=== PATIENT | female | born 1945 | race Two or more races ===

== ENCOUNTER 2017-08-08 08:18 | Inpatient (IN) | payer OTHER, MEDICARE ==
[~2017-08-08] VITALS: Ht 152.4 cm; Wt 74.9 kg
[~2017-08-08 08:18] MED LIST: ACID1TAB4 PO; Acetaminophen PO; HTN MED; HYDR-3326 PO; SULF1TAB48 PO; [UNRECOGNIZED DRUG - REMARK]
[2017-08-08] MEDS ORDERED: PIPERACILLIN SODIUM/TAZOBACTAM 3.375 G in IV DEXTROSE 5% 50 ML IV ONE (09:00)
[2017-08-08] MEDS ORDERED: VANCOMYCIN 1G/D5W 200 ML PIGGYBACK IV ONE (09:00)
[2017-08-08] MEDS ORDERED: IV NORMAL SALINE 1000 ML BAG IV ONE (09:00)
[2017-08-08] MEDS ORDERED: KETOROLAC TROMETHAMINE 30 MG INJ IVP ONE (09:00)
--- NOTE | 2017-08-08 09:24 | NUR ---
DAUGHTER IS GOING TO BRING THE COMPLETE LIST OF MEDS AT NOON TODAY. CURRENTLY. PT AND DAUGHTER CANNOT ACCURATELY RECALL THE MEDS.
--- NOTE | 2017-08-08 09:31 | NUR ---
iv placed, labs drawn/sent, presently artemio being performed. monitor shows nsr, pt's daughter at the bedside.
[2017-08-08] MEDS ORDERED: VANCOMYCIN IV 0 ML ONE (09:34)
[2017-08-08] MEDS ORDERED: KETOROLAC TROMETHAMINE 30 MG INJ ONE (09:34)
[2017-08-08 09:35] LABS: BASOPHILS # (AUTO) 0.3 K/uL (0.0-8.0); BASOPHILS % (AUTO) 1.9 % (0.0-2.0); EOSINOPHILS % (AUTO) 0.1 % (0.0-7.0); HEMATOCRIT 42.3 % (37-47); HEMOGLOBIN 13.7 G/DL (12.0-16.0); LYMPHOCYTES # (AUTO) 0.6 K/UL (0.8-4.8); LYMPHOCYTES % (AUTO) 3.8 % (20.5-51.5); MEAN CORPUSCULAR HEMOGLOBIN 25.5 UUG (27.0-31.0); MEAN CORPUSCULAR HGB CONC 32 g/dL (32.0-37.0); MEAN CORPUSCULAR VOLUME 78.5 FL (81.0-99.0); MONOCYTES # (AUTO) 0.7 K/UL (0.1-1.30); MONOCYTES % (AUTO) 4.4 % (0.0-11.0); NEUTROPHILS # (AUTO) 15.1 K/UL (1.8-8.9); NEUTROPHILS % (AUTO) 89.8 % (38.5-71.5); PLATELET COUNT (AUTO) 284 K/UL (150-450); RED BLOOD CELL COUNT(AUTO) 5.39 MIL/UL (4.2-5.4); WHITE BLOOD COUNT (AUTO) 16.7 K/UL (4.0-11.2)
[2017-08-08] MEDS ORDERED: VANCOMYCIN IV 200 ML ONE (09:35)
[2017-08-08] MEDS ORDERED: PIPERACILLIN/TAZOBACTAM/D5W 50 ML IV ONE (09:36)
[2017-08-08] MEDS ORDERED: ONDANSETRON 4 MG/2 ML VIAL ONE (09:37)
[2017-08-08 09:46] LABS: CREATININE 0.9 mg/dL (0.6-1.3); POTASSIUM 3.9 mmol/L (3.5-5.1)
[2017-08-08 10:33] LABS: *BILIRUBIN,URIN NEGATIVE (NEGATIVE); *BLOOD, URINE NEGATIVE (NEGATIVE); *CLARITY,URINE CLEAR (CLEAR); *COLOR,URINE YELLOW (YELLOW); *KETONES,URINE NEGATIVE (NEGATIVE); *PROTEIN,URINE NEGATIVE (NEGATIVE); *UROBILINOGEN,URINE 0.2 E.U./dl (NORMAL); LEUKOCYTE ESTERASE ,URINE NEGATIVE (NEGATIVE); NITRITE, URINE NEGATIVE (NEGATIVE); PH,URINE 8.5 (5.0-8.0); UGLUCOSE NEGATIVE (NEGATIVE)
[2017-08-08 10:40] LABS: BACTERIA,URINE NONE SEEN /HPF (NONE SEEN); RBC,URINE 0-3 /HPF (0-3); SQUAMOUS EPITHELIAL CELL,UR FEW /HPF (NONE SEEN); WBC,URINE 0-3 /HPF (0-3)
--- NOTE | 2017-08-08 11:05 | NUR ---
SBAR REPORT TO ESTHER MARTINEZ
--- NOTE | 2017-08-08 11:20 | NUR ---
MSE COMPLETED, ADMIT ORDER WRITTEN. PT TRANSPORTED VIA [facility] TO RM [facility]
--- NOTE | 2017-08-08 11:30 | NUR ---
Pt arrived from ER calm, cooperative, swollen right arm where she had " removal of lymph nodes" Pt should not have blood pressure taken on that arm. Pt diagnosed with cellulitis, pt came up with meds and belongings. Pt compliant with medication. Daughter at bed side Crystal. Crystal cell # .
[2017-08-08 11:45] VITALS: BP 92/45
[2017-08-08] MEDS ORDERED: MAGNESIUM HYDROXIDE 30 ML LIQUID UDC PO PRN (13:15)
[2017-08-08] MEDS ORDERED: ZOLPIDEM 5 MG TABLET PO PRN (13:15)
[2017-08-08] MEDS ORDERED: ONDANSETRON 4 MG/2 ML VIAL IV PRN (13:15)
[2017-08-08] MEDS: HYDROCODONE/APAP 5-325MG TABLET PO PRN (14:01)
[2017-08-08] MEDS ORDERED: ATEN25TA PO (14:06)
[2017-08-08] MEDS ORDERED: LOSA50TA21 PO (14:07)
[2017-08-08] MEDS ORDERED: FENO134C PO (14:07)
[2017-08-08] MEDS ORDERED: ESCI10TA55 PO (14:07)
[2017-08-08] MEDS ORDERED: FERR325T30 PO (14:07)
[2017-08-08] MEDS ORDERED: LORA10TA7 PO (14:07)
--- NOTE | 2017-08-08 15:19 | NUR ---
CLINICAL PHARMACY NOTE: VANCOMYCIN PHARMACY TO DOSE Subjective: to start vanco in this 71y/o female for indication of cellulitis Objective: hegiht 152 cm weight 74kg Bun 0.9 Scr 0.9 Wbc 16.7 temp 99.5 1gm vanco givein in ER 07/08 @ ~1000 Assessment/Plan Will start vanoc 1gm q22hrs for estimated torugh of 15.6, second dose due tomorrow at 0800. Will check trough before 4th scheduled trough (not ordered yet). Will dose per level if renal function to become unstable. To follow
[2017-08-08 15:48] VITALS: BP 90/45
[2017-08-08] MEDS: PIPERACILLIN/TAZOBACTAM/D5W 3.375 G in PREMIXED 1 EACH IV SCH ×2 (17:22→22:24)
--- NOTE | 2017-08-08 19:30 | NUR ---
RECEIVED IN BED, RESTING. FAMILY AT BEDSIDE. IN NO ACUTE SIGN OF DISTRESS. WILL CONTINUE TO MONITOR.
[2017-08-08 20:00] VITALS: BP 109/52
[2017-08-08] MEDS: ACIDOPHILUS/BULGARICUS CHEW TAB PO SCH (20:32)
[2017-08-08] MEDS: ACETAMINOPHEN 325 MG TABLET PO PRN (20:43)
[2017-08-08] MEDS ORDERED: DOCUSATE SODIUM 250 MG CAPSULE PO SCH (21:00)
[2017-08-08] MEDS: IV NS 1000 ML 1,000 ML IV PRN (22:27)
[2017-08-09] MEDS: IV NS 1000 ML 1,000 ML IV PRN (03:47)
[2017-08-09 05:06] VITALS: BP 94/45
[2017-08-09] MEDS: PIPERACILLIN/TAZOBACTAM/D5W 3.375 G in PREMIXED 1 EACH IV SCH ×2 (05:43→14:56)
[2017-08-09] MEDS: PANTOPRAZOLE SODIUM 40 MG TABLET.DR PO SCH (06:20)
--- NOTE | 2017-08-09 06:29 | NUR ---
PT IN BED ASLEEP, IN NO ACUTE SIGNS OF DISTRESS, WAS GIVEN TYLENOL LAST NIGHT FOR C/O HEADACHE, AND WITH RELIEF.IVF INFUSING. BRP X 2.SAFETY MEASURES RENDERED.
[2017-08-09 07:08] LABS: BASOPHILS % (AUTO) 0.5 % (0.0-2.0); EOSINOPHILS % (AUTO) 0.4 % (0.0-7.0); HEMATOCRIT 36.2 % (31.2-41.9); HEMOGLOBIN 11.7 g/dL (10.9-14.3); LYMPHOCYTES # (AUTO) 1.8 K/uL (20.0-40.0); LYMPHOCYTES % (AUTO) 17.2 % (20.5-51.5); MEAN CORPUSCULAR HEMOGLOBIN 25.4 uug (24.7-32.8); MEAN CORPUSCULAR HGB CONC 32 g/dL (32.3-35.6); MEAN CORPUSCULAR VOLUME 78.8 fL (75.5-95.3); MONOCYTES # (AUTO) 1.2 K/uL (2.0-10.0); NEUTROPHILS # (AUTO) 7.6 K/uL (1.8-8.9); NEUTROPHILS % (AUTO) 70.9 % (38.5-71.5); PLATELET COUNT (AUTO) 206 K/uL (179-408); RED BLOOD CELL COUNT(AUTO) 4.59 MIL/uL (3.63-4.92); WHITE BLOOD COUNT (AUTO) 10.7 K/uL (3.8-11.8)
[2017-08-09 07:27] LABS: THYROID STIMULATING HORMONE 1.092 mIU/mL (0.358-3.740)
[2017-08-09] MEDS: VANCOMYCIN IV 1 G in PREMIXED 0 EACH IV SCH (08:03)
[2017-08-09] MEDS: ACIDOPHILUS/BULGARICUS CHEW TAB PO SCH ×2 (08:04→20:25)
[2017-08-09 09:30] LABS: BILIRUBIN,TOTAL 0.5 mg/dL (0.2-1.0); MAGNESIUM 2.1 mg/dL (1.8-2.4); PHOSPHOROUS 3.1 mg/dL (2.5-4.9); TOTAL PROTEIN, SERUM 6.1 g/dL (6.4-8.2)
[2017-08-09 11:35] VITALS: BP 114/50
[2017-08-09] MEDS ORDERED: MAGNESIUM CITRATE 296 ML BOTTLE PO ONE (13:15)
[2017-08-09] MEDS ORDERED: GLYCERIN ADULT RECTAL SUPP EACH RC ONE (13:15)
[2017-08-09] MEDS: ACETAMINOPHEN 325 MG TABLET PO PRN (14:54)
--- NOTE | 2017-08-09 15:38 | NUR ---
CLINICAL PHARMACY NOTE: VANCOMYCIN PHARMACY TO DOSE Subjective: to continue vanco in this 71y/o female for indication of cellulitis Objective: hegiht 152 cm weight 74kg Bun 20 Scr 1.0 Wbc 10.7 temp 99.5 Assessment/Plan Will continue vanoc 1gm q22hrs for estimated torugh of 15.6, third dose due tomorrow at 0600. Will check trough before 4th scheduled trough (not ordered yet). Will dose per level if renal function to become unstable. To follow
[2017-08-09 15:43] VITALS: BP 118/57
--- NOTE | 2017-08-09 17:00 | NUR ---
Pt right arm is warm and swollen pitting edema. temperature of 99.9.Tylenol was given and encouraged pt to elevate her arm. Pt reassessed temperature is now 98.7. Pt is constipated and was given Mag-citrate and glycerin suppository. Awaiting BM.
--- NOTE | 2017-08-09 18:43 | NUR ---
Pt had 3 BM. No longer constipated.
--- NOTE | 2017-08-09 20:01 | NUR ---
RESTING IN BED. AAOX4 RIGHT ARM SWOLLEN. NO ACUTE DISTRESS NOTED. PATIENT HERE ON ANTIBIOTIC THERAPY. DENIES ANY PAIN AT THIS TIME. WILL MONITOR PATIENT. MAKING NEEDS KNOWN.
[2017-08-09] MEDS: DOCUSATE SODIUM 100 MG CAPSULE PO SCH (20:25)
[2017-08-09] MEDS ORDERED: CEFTRIAXONE 1 G in IV DEXTROSE 5% 50 ML IV SCH (21:15)
[2017-08-09 21:24] VITALS: BP 129/45
[2017-08-09] MEDS ORDERED: CEFTRIAXONE 1 G VIAL ONE (22:41)
[2017-08-10] MEDS: VANCOMYCIN IV 1 G in PREMIXED 0 EACH IV SCH (05:13)
[2017-08-10 05:21] VITALS: BP 152/60
[2017-08-10] MEDS: IV NS 1000 ML 1,000 ML IV PRN ×2 (05:21→20:51)
--- NOTE | 2017-08-10 05:57 | NUR ---
AAOX4 RAMOS'S AMBULATES TO THE BR WITHOUT ANY DIFFICULTY. VOIDING FREELY. DENIES ANY PAIN NOR ANY DISCOMFORT. SLEPT @ SHORT INTERVALS BECAUSE OF PATIENT NEAR HER ROOM SHE SAYS WAS TOO NOISY. IVF INFUSING WELL.
[2017-08-10] MEDS: PANTOPRAZOLE SODIUM 40 MG TABLET.DR PO SCH (06:15)
[2017-08-10 07:03] LABS: BASOPHILS % (AUTO) 0.8 % (0.0-2.0); CREATININE 0.8 mg/dL (0.6-1.3); EOSINOPHILS # (AUTO) 0.1 K/uL (0.0-0.7); EOSINOPHILS % (AUTO) 2.5 % (0.0-7.0); HEMATOCRIT 37.9 % (37-47); HEMOGLOBIN 11.9 G/DL (12.0-16.0); LYMPHOCYTES # (AUTO) 1.5 K/UL (0.8-4.8); LYMPHOCYTES % (AUTO) 26.3 % (20.5-51.5); MAGNESIUM 2.3 mg/dL (1.8-2.4); MEAN CORPUSCULAR HEMOGLOBIN 25.1 UUG (27.0-31.0); MEAN CORPUSCULAR HGB CONC 31 g/dL (32.0-37.0); MEAN CORPUSCULAR VOLUME 79.9 FL (81.0-99.0); MONOCYTES # (AUTO) 0.9 K/UL (0.1-1.30); MONOCYTES % (AUTO) 15.3 % (0.0-11.0); NEUTROPHILS # (AUTO) 3.4 K/UL (1.8-8.9); NEUTROPHILS % (AUTO) 55.1 % (38.5-71.5); PHOSPHOROUS 2.7 mg/dL (2.5-4.9); PLATELET COUNT (AUTO) 199 K/UL (150-450); POTASSIUM 3.9 mmol/L (3.5-5.1); RED BLOOD CELL COUNT(AUTO) 4.74 MIL/UL (4.2-5.4); WHITE BLOOD COUNT (AUTO) 5.9 K/UL (4.0-11.2)
[2017-08-10] MEDS: HYDROCODONE/APAP 5-325MG TABLET PO PRN ×2 (08:33→20:21)
[2017-08-10 09:44] LABS: EOSINOPHILS % (MANUAL) 2 % (0-8); LYMPHOCYTES % (MANUAL) 21 % (20-40); MONOCYTES % (MANUAL) 9 % (2-10); NEUTROPHILS % (MANUAL) 68 % (42-75)
[2017-08-10] MEDS: ACIDOPHILUS/BULGARICUS CHEW TAB PO SCH ×2 (10:02→20:22)
[2017-08-10] MEDS: ESCITALOPRAM OXALATE 10 MG TABLET PO SCH (11:30)
[2017-08-10] MEDS ORDERED: Medication Not On Formulary EA (Fenofibrate,Micronized (Fenofibrate) 134 MG) PO SCH (11:30)
[2017-08-10] MEDS: LORATADINE 10 MG TABLET PO SCH (11:30)
[2017-08-10] MEDS ORDERED: LOSARTAN POTASSIUM 50 MG TABLET PO SCH ×2 (11:30→20:00)
[2017-08-10] MEDS: FERROUS SULFATE 325 MG TABEC PO SCH (11:30)
[2017-08-10] MEDS ORDERED: ATENOLOL 25 MG TABLET PO SCH ×2 (11:30→22:00)
[2017-08-10 11:36] VITALS: BP 117/62
[2017-08-10] MEDS: FENOFIBRATE NANOCRYSTALLIZED 145 MG TABLET PO SCH (12:30)
--- NOTE | 2017-08-10 13:52 | NUR ---
CLINICAL PHARMACY NOTE: VANCOMYCIN PHARMACY TO DOSE Subjective: to continue vanco in this 71y/o female for indication of cellulitis Objective: height 152 cm weight 74kg Bun 15 Scr 0.8 Wbc 5.9 temp 97.8 Assessment/Plan Will continue vanco 1gm q22hrs for today. Will check trough before 4th scheduled trough (ordered for tomorrow at 0330am- RN has been informed to hold 4am dose if trough is above 20 mcg/ml). Pharmacy will check vanco level in am & adjust the dose if needed. will continue to follow
[2017-08-10 15:40] VITALS: BP 121/68
[2017-08-10] MEDS: DOCUSATE SODIUM 100 MG CAPSULE PO SCH (20:22)
[2017-08-10 20:28] VITALS: BP 143/63
[2017-08-10] MEDS ORDERED: CEFTRIAXONE 1 G in IV DEXTROSE 5% 50 ML IV SCH (23:00)
[2017-08-11 00:23] VITALS: BP 137/71
[2017-08-11 04:14] LABS: CREATININE 0.8 mg/dL (0.6-1.3)
[2017-08-11 04:18] LABS: BASOPHILS % (AUTO) 0.7 % (0.0-2.0); EOSINOPHILS # (AUTO) 0.2 K/uL (0.0-0.7); EOSINOPHILS % (AUTO) 3.6 % (0.0-7.0); HEMATOCRIT 37.4 % (37-47); LYMPHOCYTES # (AUTO) 2.2 K/UL (0.8-4.8); LYMPHOCYTES % (AUTO) 35.1 % (20.5-51.5); MEAN CORPUSCULAR HEMOGLOBIN 25.3 UUG (27.0-31.0); MEAN CORPUSCULAR HGB CONC 32 g/dL (32.0-37.0); MONOCYTES # (AUTO) 0.7 K/UL (0.1-1.30); MONOCYTES % (AUTO) 10.8 % (0.0-11.0); NEUTROPHILS # (AUTO) 3.2 K/UL (1.8-8.9); NEUTROPHILS % (AUTO) 49.8 % (38.5-71.5); PLATELET COUNT (AUTO) 205 K/UL (150-450); RED BLOOD CELL COUNT(AUTO) 4.73 MIL/UL (4.2-5.4); WHITE BLOOD COUNT (AUTO) 6.3 K/UL (4.0-11.2)
[2017-08-11] MEDS: VANCOMYCIN IV 1 G in PREMIXED 0 EACH IV SCH (04:27)
[2017-08-11 04:46] VITALS: BP 114/56
[2017-08-11] MEDS: PANTOPRAZOLE SODIUM 40 MG TABLET.DR PO SCH (06:34)
--- NOTE | 2017-08-11 07:30 | NUR ---
RESTING IN BED NO SOB OR SIGNS OF DISTRESS, RIGHT ARM STILL SWOLLEN 3+, DENIES PAIN OR TINGLING OR NUMBNESS CONTINUE WITH IV ANTIBIOTICS
[2017-08-11] MEDS: LORATADINE 10 MG TABLET PO SCH (08:27)
[2017-08-11] MEDS: ESCITALOPRAM OXALATE 10 MG TABLET PO SCH (08:27)
[2017-08-11] MEDS: FENOFIBRATE NANOCRYSTALLIZED 145 MG TABLET PO SCH (08:27)
[2017-08-11] MEDS: FERROUS SULFATE 325 MG TABEC PO SCH (08:27)
[2017-08-11] MEDS: ACIDOPHILUS/BULGARICUS CHEW TAB PO SCH (08:27)
[2017-08-11 11:03] VITALS: BP 133/64
[2017-08-11] MEDS ORDERED: SULF1TAB48 PO (11:42)
[2017-08-11] MEDS ORDERED: ACID1TAB4 PO (11:42)
--- NOTE | 2017-08-11 12:00 | NUR ---
SEEN BY HOSPITALIST WITH DC ORDER FREIGHT ENGINEER MADE AWARE
[2017-08-11 15:10] VITALS: BP 133/61
--- NOTE | 2017-08-11 15:46 | NUR ---
DC AND FOLLOW-UP INSTRUCTION GIVEN
[2017-08-11] MEDS ORDERED: VANCOMYCIN IV 1 G in PREMIXED 0 EACH IV SCH (16:00)
--- NOTE | 2017-08-11 16:04 | NUR ---
DCD HOME STABLE WITH RX AND FOLLOW-UP INSTRUCTION GIVEN TO DAUGHTER VIS PRIVATE CAR
== END 2017-08-11 16:00 | disposition home or self-care (01) | DRG 720 ==
LOC: ER 08:18 → MED 10:48
PROVIDERS: ADMIT Internal Medicine; ATTEND Internal Medicine
DX: A41.9 Sepsis, unspecified organism (principal); N17.0 Acute kidney failure with tubular necrosis; L03.113 Cellulitis of right upper limb; I10 Essential (primary) hypertension; Z90.11 Acquired absence of right breast and nipple; I97.2 Postmastectomy lymphedema syndrome; E66.9 Obesity, unspecified; Z68.32 Body mass index [BMI] 32.0-32.9, adult; E78.5 Hyperlipidemia, unspecified; E87.6 Hypokalemia; Z85.3 Personal history of malignant neoplasm of breast; R73.9 Hyperglycemia, unspecified; R19.7 Diarrhea, unspecified; Z79.899 Other long term (current) drug therapy
CPT/HCPCS: 36415; 83550; 83605; 83735; 84100; 84443; 85025; 85730; 87040; 87086; A4663; J0696; J1885; J2405; J2543; J3370; J7030; J7060

== ENCOUNTER 2017-09-18 23:36 | Inpatient (IN) | payer OTHER, MEDICARE ==
[~2017-09-18] VITALS: Ht 167.6 cm; Wt 83.9 kg
[~2017-09-18 23:36] MED LIST changes: +ATEN25TA PO; -Acetaminophen PO; +ESCI10TA55 PO; +FENO134C PO; +FERR325T30 PO; -HTN MED; -HYDR-3326 PO; +LORA10TA7 PO; +LOSA50TA21 PO; -[UNRECOGNIZED DRUG - REMARK]
[2017-09-19] MEDS ORDERED: IV NORMAL SALINE 1000 ML BAG IV ONE (01:15)
--- NOTE | 2017-09-19 01:38 | NUR ---
Patient is AAOx4. No acute distress at this time. Daughter at bedside. All patient needs attended and met.
[2017-09-19 01:49] LABS: BASOPHILS % (AUTO) 0.2 % (0.0-2.0); EOSINOPHILS # (AUTO) 0.1 K/uL (0.0-0.7); EOSINOPHILS % (AUTO) 0.3 % (0.0-7.0); LYMPHOCYTES # (AUTO) 0.8 K/uL (20.0-40.0); LYMPHOCYTES % (AUTO) 4.7 % (20.5-51.5); MEAN CORPUSCULAR HEMOGLOBIN 25.5 uug (24.7-32.8); MEAN CORPUSCULAR HGB CONC 33 g/dL (32.3-35.6); MEAN CORPUSCULAR VOLUME 78.3 fL (75.5-95.3); MONOCYTES # (AUTO) 0.8 K/uL (2.0-10.0); MONOCYTES % (AUTO) 4.5 % (0.0-11.0); NEUTROPHILS # (AUTO) 15.6 K/uL (1.8-8.9); NEUTROPHILS % (AUTO) 90.3 % (38.5-71.5); PLATELET COUNT (AUTO) 243 K/uL (179-408); RED BLOOD CELL COUNT(AUTO) 5.11 MIL/uL (3.63-4.92); WHITE BLOOD COUNT (AUTO) 17.3 K/uL (3.8-11.8)
--- NOTE | 2017-09-19 01:56 | NUR ---
CALLED PATIENT'S DAUGHTER RAADTELMA IWRIN TO GET LIST OF MEDICATION. UNABLE TO OBTAIN LIST AT THIS TIME. PATIENT'S DAUGHTER WILL BRING IN AM
[2017-09-19 02:08] LABS: CREATININE 0.9 mg/dL (0.6-1.3); POTASSIUM 4.1 mmol/L (3.5-5.1)
--- NOTE | 2017-09-19 02:14 | NUR ---
APOLONIA BOB spoke with Dr Abdi, patient cleared for admission
[2017-09-19 02:15] LABS: BILIRUBIN,DIRECT 0.1 mg/dL (0.0-0.2); BILIRUBIN,TOTAL 0.5 mg/dL (0.2-1.0); TOTAL PROTEIN, SERUM 7.4 g/dL (6.4-8.2)
[2017-09-19] MEDS ORDERED: HYDROCODONE/APAP 5-325MG TABLET PO PRN (02:15)
[2017-09-19] MEDS ORDERED: ONDANSETRON 4 MG/2 ML VIAL IV PRN (02:15)
[2017-09-19] MEDS ORDERED: MAGNESIUM HYDROXIDE 30 ML LIQUID UDC PO PRN (02:15)
[2017-09-19] MEDS ORDERED: ACETAMINOPHEN 325 MG TABLET PO PRN (02:15)
[2017-09-19] MEDS ORDERED: HYDROCODONE/APAP 10-325 MG TABLET PO PRN (02:15)
[2017-09-19] MEDS ORDERED: VANCOMYCIN IV 1,000 MG in IV DEXTROSE 5% 250 ML IV ONE (02:15)
[2017-09-19] MEDS ORDERED: Z GUARD REMEDY PASTE 57 GM TUBE TOP PRN (02:15)
[2017-09-19] MEDS ORDERED: VANCOMYCIN IV 200 ML ONE (02:37)
--- NOTE | 2017-09-19 03:03 | NUR ---
patient in bed, no acute distress noted
--- NOTE | 2017-09-19 03:07 | NUR ---
Report given to Ashley Plasencia on inpatient unit. Patient admitted to Med Surg under Dr Abdi. Belongings list completed. 2 Rn skin check complete with no issues noted. VSS
--- NOTE | 2017-09-19 04:20 | NUR ---
Patient arrived in the unit via wheelchair from ER at 0340. AAO x4. Farsi speaking but able to make needs known and converse in Latvian. Left hand IV 20 gauge, patent and intact. Vancomycin infusing. No acute distress noted. On room air. Right arm swollen, and c/o slight pain but stated that she has already received pain medication in the ER. Pertinent assessment done. Oriented the patient to the unit and equipment. Safety measures maintained. Call light and personal belongings within reach. Will continue to monitor.
[2017-09-19 05:08] VITALS: BP 101/57
[2017-09-19 08:00] VITALS: BP 98/49
--- NOTE | 2017-09-19 08:00 | NUR ---
Patient is asleep at this time, with left hand IV 20 gauge, patent and intact. No acute distress noted. On room air. Right arm swollen, encourage to elevate the right arm at this time, she denies pain. Pertinent assessment done. Safety measures maintained. Call light and personal belongings within reach. Will continue to monitor.
[2017-09-19] MEDS: ENOXAPARIN SODIUM 40 MG/0.4 ML DISP.SYRIN SQ SCH (09:23)
[2017-09-19] MEDS ORDERED: DEXL60CA3 PO (11:40)
[2017-09-19] MEDS ORDERED: LORA10TA7 PO (11:40)
[2017-09-19] MEDS ORDERED: FENO134C PO (11:40)
[2017-09-19] MEDS ORDERED: ATEN25TA PO (11:40)
[2017-09-19] MEDS ORDERED: CALC500T29 PO (11:40)
[2017-09-19] MEDS ORDERED: ESCI20TA PO (11:40)
--- NOTE | 2017-09-19 13:06 | NUR ---
CLINICAL PHARMACY NOTE:VANCOMYCIN DOSING S Start vancomycin dosing 0n 71 y/o female 5'6" 185 lb for cellulitis. patient received vanco 1000mg IVPB x1 in ED on 09/19 at 230. labs Temp 98.5 BUN 24 Scr 0.9 wbc 17.3 Plan Will start vanco 1250mg IVPB q20 h for estimated trough 15.6 mcg/ml at steady state. 1st dose is due today at 2000. Will order trough level prior to 4th dose (not yet ordered). Will monitor renal function & adjust the dose if needed. Will continue to monitor
--- NOTE | 2017-09-19 18:34 | NUR ---
Earlier today, daughter of patient Susie Barnett, brought home medications and were sent to the pharmacy, for reconciliation. Patient is awake at this time, with left hand IV 20 gauge, patent and intact. No acute distress noted. On room air. Right arm swollen, encourage to elevate the right arm. Patient is on antibiotic therapy no signs and symptoms of adverse reactions at this time, needs attended promptly, kept comfortable, clean and dry. Pain management provided as needed. Pertinent assessment done. Safety measures maintained. Call light and personal belongings within reach.
[2017-09-19 19:30] VITALS: BP 121/55
--- NOTE | 2017-09-19 19:45 | NUR ---
Received pt in bed, AAO x 3 with granddaughter at bedside. Verbally responsive and able to make needs known. Denies pain or discomfort at this time. No acute distress noted. All safety measures and fall precautions maintained. Call light and personal belongings within reach. 20g saline lock IV noted on left hand. Denies pain at site. Will continue to monitor.
[2017-09-19] MEDS: VANCOMYCIN IV 1,250 MG in IV DEXTROSE 5% 500 ML IV SCH (20:25)
--- NOTE | 2017-09-19 21:15 | NUR ---
Patient complaining of pain at IV site. Noted infiltration. IV meds stopped. L hand IV removed and ice pack applied. IV re-inserted on L FA 22g, patent and intact with good blood return. Continuing IV medications per order. Safety maintained. Will continue to monitor.
--- NOTE | 2017-09-20 07:44 | NUR ---
Patient asleep at this time, respirations even and regular not in acute distress. Patient was noted with a new IV line in her left forearm, gauge 22 that was inserted by the previous shift, upon assessment IV site has no signs and symptoms of infiltration nor phlebitis at this time, and will continue to monitor. Safety assessments done, floor was non-slippery and dry, bed was locked, all her belongings and call light remains within reach. Patient is on ATB therapy with no signs and symptoms of adverse side effects, will continue to monitor.
[2017-09-20 07:56] VITALS: BP 102/44
[2017-09-20 08:49] LABS: EOSINOPHILS # (AUTO) 0.1 K/uL (0.0-0.7)
[2017-09-20 08:58] LABS: CREATININE 0.8 mg/dL (0.6-1.3); PHOSPHOROUS 3.3 mg/dL (2.5-4.9); POTASSIUM 4.2 mmol/L (3.5-5.1)
[2017-09-20 09:12] LABS: BASOPHILS % (AUTO) 0.6 % (0.0-2.0); EOSINOPHILS % (AUTO) 1.2 % (0.0-7.0); HEMATOCRIT 39.7 % (31.2-41.9); LYMPHOCYTES # (AUTO) 2.2 K/uL (20.0-40.0); LYMPHOCYTES % (AUTO) 26.2 % (20.5-51.5); MEAN CORPUSCULAR HEMOGLOBIN 25.8 uug (24.7-32.8); MEAN CORPUSCULAR HGB CONC 33 g/dL (32.3-35.6); MEAN CORPUSCULAR VOLUME 78.7 fL (75.5-95.3); MONOCYTES % (AUTO) 12.5 % (0.0-11.0); NEUTROPHILS # (AUTO) 4.9 K/uL (1.8-8.9); NEUTROPHILS % (AUTO) 59.5 % (38.5-71.5); PLATELET COUNT (AUTO) 233 K/uL (179-408); RED BLOOD CELL COUNT(AUTO) 5.05 MIL/uL (3.63-4.92)
[2017-09-20 09:13] LABS: WHITE BLOOD COUNT (AUTO) 8.2 K/uL (3.8-11.8)
[2017-09-20] MEDS: ENOXAPARIN SODIUM 40 MG/0.4 ML DISP.SYRIN SQ SCH (10:04)
--- NOTE | 2017-09-20 15:21 | NUR ---
CLINICAL PHARMACY NOTE:VANCOMYCIN DOSING S continue vancomycin dosing 0n 71 y/o female 5'6" 185 lb for cellulitis. labs Temp 98.2 BUN 16 Scr 0.8 wbc 8.2 Plan Will continue same dose of vanco 1250mg IVPB q20 h for today. 2nd dose is due today at 1600. Will order trough level prior to 4th dose (not yet ordered). Will monitor renal function & adjust the dose if needed. Will continue to monitor
[2017-09-20] MEDS: VANCOMYCIN IV 1,250 MG in IV DEXTROSE 5% 500 ML IV SCH (16:04)
--- NOTE | 2017-09-20 18:50 | NUR ---
Patient had a room change from 124A to 123A. Patient was made well aware about the transfer and she was compliant. She was oriented well with the room and all belongings were brought together with the patient, needs attended promptly, call light in reach.
--- NOTE | 2017-09-20 19:25 | NUR ---
Received pt in bed, AAO x 4, on her cellphone. Verbally responsive and able to make needs known. Denies pain or discomfort at this time. No acute distress noted. All safety measures and fall precautions maintained. Call light and all personal belongings within reach. Will continue to monitor.
[2017-09-20 20:00] VITALS: BP 144/73
[2017-09-21 04:00] VITALS: BP 120/50
[2017-09-21 07:59] VITALS: BP 135/68
[2017-09-21] MEDS: ENOXAPARIN SODIUM 40 MG/0.4 ML DISP.SYRIN SQ SCH (09:47)
[2017-09-21] MEDS: LORATADINE 10 MG TABLET PO SCH (11:30)
[2017-09-21] MEDS ORDERED: ATENOLOL 25 MG TABLET PO SCH (11:30)
[2017-09-21] MEDS ORDERED: Medication Not On Formulary EA (Fenofibrate,Micronized (Fenofibrate) 134 MG) PO SCH (11:30)
[2017-09-21] MEDS: FENOFIBRATE NANOCRYSTALLIZED 145 MG TABLET PO SCH (12:49)
[2017-09-21 12:52] LABS: BASOPHILS # (AUTO) 0.1 K/uL (0.0-8.0); BASOPHILS % (AUTO) 0.9 % (0.0-2.0); EOSINOPHILS # (AUTO) 0.1 K/uL (0.0-0.7); EOSINOPHILS % (AUTO) 1.9 % (0.0-7.0); HEMATOCRIT 39.4 % (31.2-41.9); HEMOGLOBIN 13.2 g/dL (10.9-14.3); LYMPHOCYTES # (AUTO) 1.8 K/uL (20.0-40.0); LYMPHOCYTES % (AUTO) 23.5 % (20.5-51.5); MEAN CORPUSCULAR HEMOGLOBIN 26.1 uug (24.7-32.8); MEAN CORPUSCULAR HGB CONC 34 g/dL (32.3-35.6); MEAN CORPUSCULAR VOLUME 78.1 fL (75.5-95.3); MONOCYTES # (AUTO) 0.8 K/uL (2.0-10.0); MONOCYTES % (AUTO) 10.8 % (0.0-11.0); NEUTROPHILS # (AUTO) 4.7 K/uL (1.8-8.9); NEUTROPHILS % (AUTO) 62.9 % (38.5-71.5); PLATELET COUNT (AUTO) 240 K/uL (179-408); RED BLOOD CELL COUNT(AUTO) 5.04 MIL/uL (3.63-4.92); WHITE BLOOD COUNT (AUTO) 7.5 K/uL (3.8-11.8)
[2017-09-21 13:23] LABS: BILIRUBIN,TOTAL 0.4 mg/dL (0.2-1.0); CREATININE 0.8 mg/dL (0.6-1.3); MAGNESIUM 2.2 mg/dL (1.8-2.4); PHOSPHOROUS 3.5 mg/dL (2.5-4.9); TOTAL PROTEIN, SERUM 7.7 g/dL (6.4-8.2)
[2017-09-21] MEDS: PIPERACILLIN/TAZOBACTAM/D5W 50 ML IV SCH ×3 (13:55→23:14)
--- NOTE | 2017-09-21 14:06 | NUR ---
CLINICAL PHARMACY NOTE:VANCOMYCIN DOSING S continue vancomycin dosing 0n 71 y/o female 5'6" 185 lb for cellulitis. labs Temp 97.8 BUN 19 Scr 0.8 wbc 7.5 Plan continue same dose of vanco 1250mg IVPB q20 h for today but will adjust the schedule(3rd dose scheduled today at 1200, but not given-rescheduled to give at 1500).Will order trough level prior to 4th dose (not yet ordered). Will monitor renal function & adjust the dose if needed. Will continue to monitor
[2017-09-21] MEDS: VANCOMYCIN IV 1,250 MG in IV DEXTROSE 5% 500 ML IV SCH (15:53)
--- NOTE | 2017-09-21 18:00 | NUR ---
Patient was stable all throughout the shift, with safety measures provided at all times, patient is alert and oriented x4, ambulatory. Right hand swollen due to cellulitis, in which she is receiving IV antibiotic therapy with no adverse reactions at this time, IV site g20 on the left hand is not infiltrated at this time, encouraged patient to elevate her right hand. Patient was seen by Claudine Cleveland LASER BEAM CUTTER, with new orders noted and carried out. Needs attended promptly, due medications given, call light and belongings placed in reach.
[2017-09-21] MEDS: CALCIUM CARBONATE 500 MG TABLET PO SCH (18:17)
--- NOTE | 2017-09-21 19:45 | NUR ---
Received pt in bed, AAO x 4 watching television. Verbally responsive and able to make needs known. No acute distress noted. Denies pain or discomfort at this time. All safety measures and fall precautions maintained. Call light and all personal belongings within reach. Will continue to monitor.
[2017-09-21 20:00] VITALS: BP 126/70
[2017-09-21] MEDS ORDERED: ESCITALOPRAM OXALATE 10 MG TABLET PO SCH (21:00)
[2017-09-21] MEDS ORDERED: Medication Not On Formulary EA (Escitalopram Oxalate (Lexapro) 20 MG) PO SCH (21:00)
[2017-09-22 04:00] VITALS: BP 135/83
[2017-09-22] MEDS: PIPERACILLIN/TAZOBACTAM/D5W 50 ML IV SCH ×2 (06:04→12:18)
[2017-09-22] MEDS ORDERED: PANTOPRAZOLE SODIUM 40 MG TABLET.DR PO SCH (07:00)
[2017-09-22 08:48] VITALS: BP 130/65
[2017-09-22] MEDS: LORATADINE 10 MG TABLET PO SCH (09:00)
[2017-09-22] MEDS: CALCIUM CARBONATE 500 MG TABLET PO SCH ×2 (10:09→17:00)
[2017-09-22] MEDS: FENOFIBRATE NANOCRYSTALLIZED 145 MG TABLET PO SCH (10:09)
[2017-09-22] MEDS: ENOXAPARIN SODIUM 40 MG/0.4 ML DISP.SYRIN SQ SCH (10:12)
[2017-09-22 11:20] LABS: BASOPHILS # (AUTO) 0.1 K/uL (0.0-8.0); BASOPHILS % (AUTO) 0.8 % (0.0-2.0); EOSINOPHILS # (AUTO) 0.1 K/uL (0.0-0.7); EOSINOPHILS % (AUTO) 2.3 % (0.0-7.0); HEMATOCRIT 41.5 % (31.2-41.9); HEMOGLOBIN 13.7 g/dL (10.9-14.3); LYMPHOCYTES # (AUTO) 1.9 K/uL (20.0-40.0); LYMPHOCYTES % (AUTO) 29.1 % (20.5-51.5); MEAN CORPUSCULAR HGB CONC 33 g/dL (32.3-35.6); MEAN CORPUSCULAR VOLUME 78.7 fL (75.5-95.3); MONOCYTES # (AUTO) 0.6 K/uL (2.0-10.0); MONOCYTES % (AUTO) 8.9 % (0.0-11.0); NEUTROPHILS # (AUTO) 3.8 K/uL (1.8-8.9); NEUTROPHILS % (AUTO) 58.9 % (38.5-71.5); PLATELET COUNT (AUTO) 276 K/uL (179-408); RED BLOOD CELL COUNT(AUTO) 5.27 MIL/uL (3.63-4.92); WHITE BLOOD COUNT (AUTO) 6.5 K/uL (3.8-11.8)
[2017-09-22 12:13] LABS: BILIRUBIN,TOTAL 0.7 mg/dL (0.2-1.0); CREATININE 0.9 mg/dL (0.6-1.3); MAGNESIUM 2.1 mg/dL (1.8-2.4); PHOSPHOROUS 4.1 mg/dL (2.5-4.9); POTASSIUM 4.4 mmol/L (3.5-5.1); TOTAL PROTEIN, SERUM 7.8 g/dL (6.4-8.2)
--- NOTE | 2017-09-22 13:55 | NUR ---
CLINICAL PHARMACY NOTE:VANCOMYCIN DOSING S continue vancomycin dosing 0n 71 y/o female 5'6" 185 lb for cellulitis. labs Temp 97.7 BUN 17 Scr 0.9 wbc 6.5 Plan Will continue with same regimen vanco 1250mg IVPB q20 h. Pt recieved second dose today@ 1100. Will order trough level prior to 4th dose (not yet ordered). Will monitor renal function & adjust the dose if needed. Will continue to monitor
[2017-09-22] MEDS: VANCOMYCIN IV 1,250 MG in IV DEXTROSE 5% 500 ML IV SCH (14:13)
[2017-09-22] MEDS ORDERED: CEPH500C2 PO (14:25)
[2017-09-22] MEDS ORDERED: LACT1CAP57 PO (14:25)
[2017-09-22] MEDS ORDERED: HYDR-3326 PO (14:25)
[2017-09-22] MEDS ORDERED: LACTOBACILLUS RHAMNOSUS GG 1 EACH CAPSULE PO SCH (14:30)
[2017-09-22 15:09] LABS: *BILIRUBIN,URIN NEGATIVE (NEGATIVE); *BLOOD, URINE NEGATIVE (NEGATIVE); *CLARITY,URINE CLEAR (CLEAR); *COLOR,URINE YELLOW (YELLOW); *KETONES,URINE NEGATIVE (NEGATIVE); *PROTEIN,URINE NEGATIVE (NEGATIVE); *UROBILINOGEN,URINE 0.2 E.U./dl (NORMAL); LEUKOCYTE ESTERASE ,URINE NEGATIVE (NEGATIVE); NITRITE, URINE NEGATIVE (NEGATIVE); PH,URINE 5.5 (5.0-8.0); UGLUCOSE NEGATIVE (NEGATIVE)
[2017-09-22 15:24] LABS: RBC,URINE 0-3 /HPF (0-3)
[2017-09-22 15:25] LABS: BACTERIA,URINE NONE SEEN /HPF (NONE SEEN); SQUAMOUS EPITHELIAL CELL,UR FEW /HPF (NONE SEEN)
--- NOTE | 2017-09-22 17:53 | NUR ---
Patient was discharged on a stable condition accompanied by daughter Susie Murdock with all belongings and medications bought from home given to the patient, was checked thoroughly and accurately. Patient and daughter were given all discharge instructions and prescriptions, they both verbalized full understanding. They left with a private car.
[2017-09-22] MEDS ORDERED: ATORVASTATIN 20 MG TABLET PO SCH (21:00)
[2017-09-22] MEDS ORDERED: ATENOLOL 25 MG TABLET PO SCH (21:00)
[2017-09-22] MEDS ORDERED: CEPHALEXIN MONOHYDRATE 500 MG CAPSULE PO SCH (22:00)
== END 2017-09-22 18:00 | disposition home or self-care (01) | DRG 383 ==
LOC: ER 23:38 → MEDSURG1 09-19 02:10
PROVIDERS: ADMIT Internal Medicine
DX: L03.113 Cellulitis of right upper limb (principal); I10 Essential (primary) hypertension; E78.5 Hyperlipidemia, unspecified; I97.2 Postmastectomy lymphedema syndrome; Z90.11 Acquired absence of right breast and nipple; E66.9 Obesity, unspecified; Z68.29 Body mass index [BMI] 29.0-29.9, adult; Z79.899 Other long term (current) drug therapy; Z85.3 Personal history of malignant neoplasm of breast; Z98.49 Cataract extraction status, unspecified eye; H40.9 Unspecified glaucoma; R74.0 Nonspecific elevation of levels of transaminase and lactic acid dehydrogenase [LDH]; F41.9 Anxiety disorder, unspecified; F32.9 Major depressive disorder, single episode, unspecified
CPT/HCPCS: 36415; 70030-TC; 71045; 83605; 83690; 83735; 84100; 84443; 85025; 85730; 87040; 87086; 93005; A4663; J1650; J2543; J3370; J7060

== ENCOUNTER 2019-11-29 23:59 | Emergency (ER) | payer MEDICARE, OTHER ==
[~2019-11-29] VITALS: Ht 152.4 cm; Wt 74.4 kg
[2019-11-30] MEDS ORDERED: KETOROLAC TROMETHAMINE 15 MG INJ IVP ONE (00:30)
[2019-11-30] MEDS ORDERED: VANCOMYCIN IV 1,000 MG in IV DEXTROSE 5% 250 ML IV ONE (00:30)
[2019-11-30] MEDS ORDERED: HYDROMORPHONE 1 MG/1 ML DISP.SYRIN IV ONE (00:30)
[2019-11-30] MEDS ORDERED: CEFTRIAXONE 1 G in IV DEXTROSE 5% 50 ML IV ONE (00:30)
[2019-11-30] MEDS ORDERED: KETOROLAC TROMETHAMINE 15 MG INJ ONE (00:35)
[2019-11-30] MEDS ORDERED: CEFTRIAXONE /D5W 50ML IVPB **ER PYXIS IV ONE (00:36)
[2019-11-30] MEDS ORDERED: VANCOMYCIN IV 200 ML ONE (00:36)
[2019-11-30] MEDS ORDERED: HYDROMORPHONE 1 MG/1 ML DISP.SYRIN ONE (00:43)
[2019-11-30 00:53] LABS: CREATININE 0.9 mg/dL (0.6-1.3); POTASSIUM 3.7 mmol/L (3.5-5.1)
[2019-11-30 00:59] LABS: BILIRUBIN,DIRECT 0.1 mg/dL (0.0-0.2); BILIRUBIN,TOTAL 0.6 mg/dL (0.2-1.0); TOTAL PROTEIN, SERUM 7.4 g/dL (6.4-8.2)
[2019-11-30 01:00] LABS: BASOPHILS # (AUTO) 0.1 K/uL (0.0-8.0); BASOPHILS % (AUTO) 0.6 % (0.0-2.0); EOSINOPHILS # (AUTO) 0.1 K/uL (0.0-0.7); EOSINOPHILS % (AUTO) 0.5 % (0.0-7.0); HEMATOCRIT 39.6 % (31.2-41.9); HEMOGLOBIN 12.7 g/dL (10.9-14.3); LYMPHOCYTES # (AUTO) 0.7 K/uL (20.0-40.0); MEAN CORPUSCULAR HGB CONC 32 g/dL (32.3-35.6); MEAN CORPUSCULAR VOLUME 78.2 fL (75.5-95.3); MONOCYTES % (AUTO) 5.7 % (0.0-11.0); NEUTROPHILS # (AUTO) 15.2 K/uL (1.8-8.9); NEUTROPHILS % (AUTO) 89.2 % (38.5-71.5); PLATELET COUNT (AUTO) 227 K/uL (179-408); RED BLOOD CELL COUNT(AUTO) 5.06 MIL/uL (3.63-4.92); WHITE BLOOD COUNT (AUTO) 17.1 K/uL (3.8-11.8)
--- NOTE | 2019-11-30 02:25 | NUR ---
IV removed. Catheter intact and site benign. Pressure and 4x4 gauze applied to site. No bleeding noted.
--- NOTE | 2019-11-30 02:31 | NUR ---
Patient discharged to home in stable conditon. Written and verbal after care instructions given. Patient verbalizes understanding of instructions. Pt left ER in stable condition with daughter who will take pt home. Patient does not wish to proceed with medical care recommended by Dr. Ca. Patient given information related to possible complications, up to and including , which could occur as a result of leaving the hospital at this time. Patient verbalizes understanding of risks involved due to leaving against medical advice. Patient has signed AMA form.
[2019-11-30 02:32] VITALS: BP 122/66
== END 2019-11-30 02:32 | disposition home or self-care (01) ==
LOC: ER 11-30 00:03
DX: L03.113 Cellulitis of right upper limb (principal); B96.89 Other specified bacterial agents as the cause of diseases classified elsewhere; I10 Essential (primary) hypertension; E78.5 Hyperlipidemia, unspecified; Z79.899 Other long term (current) drug therapy
CPT/HCPCS: 36415; 80048; 80076; 85025; 87040 ×2; 93971; 96365; 96367; 96375; 99284; J0696; J1170; J1885; J3370; A4663

== ENCOUNTER 2020-06-23 23:48 | Inpatient (IN) | payer MEDICARE, OTHER ==
[~2020-06-23] VITALS: Ht 157.5 cm; Wt 77.1 kg
[~2020-06-23 23:48] MED LIST changes: -ACID1TAB4 PO; +CALC500T29 PO; +CEPH500C2 PO; +DEXL60CA3 PO; -ESCI10TA55 PO; +ESCI20TA PO; -FERR325T30 PO; +HYDR-3326 PO; +LACT1CAP57 PO; -LOSA50TA21 PO; -SULF1TAB48 PO
--- NOTE | 2020-06-24 00:18 | NUR ---
at bedside for assessment
[2020-06-24] MEDS ORDERED: IV NORMAL SALINE 500 ML IV ONE (00:30)
[2020-06-24] MEDS ORDERED: VANCOMYCIN 1G/D5W 200 ML PIGGYBACK IV ONE (00:30)
[2020-06-24] MEDS ORDERED: CALC500T52 PO (00:38)
[2020-06-24] MEDS ORDERED: IBUP-1955 PO (00:38)
[2020-06-24] MEDS ORDERED: PRAV10TA40 PO (00:38)
[2020-06-24] MEDS ORDERED: AMLO2.5T4 PO (00:38)
[2020-06-24] MEDS ORDERED: METO25TA6 PO (00:38)
[2020-06-24] MEDS ORDERED: ASPI-1169 PO (00:38)
[2020-06-24] MEDS ORDERED: LOSA25TA27 PO (00:38)
[2020-06-24] MEDS ORDERED: ACET-73 PO (00:38)
[2020-06-24] MEDS ORDERED: VANCOMYCIN IV 200 ML ONE (00:44)
[2020-06-24 01:21] LABS: BASOPHILS # (AUTO) 0.1 K/uL (0.0-8.0); BASOPHILS % (AUTO) 0.8 % (0.0-2.0); CREATININE 0.9 mg/dL (0.6-1.3); EOSINOPHILS % (AUTO) 0.1 % (0.0-7.0); HEMATOCRIT 42.1 % (31.2-41.9); HEMOGLOBIN 13.7 g/dL (10.9-14.3); LYMPHOCYTES # (AUTO) 1.6 K/uL (20.0-40.0); LYMPHOCYTES % (AUTO) 10.4 % (20.5-51.5); MEAN CORPUSCULAR HEMOGLOBIN 24.9 uug (24.7-32.8); MEAN CORPUSCULAR HGB CONC 32 g/dL (32.3-35.6); MEAN CORPUSCULAR VOLUME 76.9 fL (75.5-95.3); MONOCYTES # (AUTO) 1.5 K/uL (2.0-10.0); MONOCYTES % (AUTO) 9.6 % (0.0-11.0); NEUTROPHILS # (AUTO) 12.6 K/uL (1.8-8.9); NEUTROPHILS % (AUTO) 79.1 % (38.5-71.5); PLATELET COUNT (AUTO) 231 K/uL (179-408); POTASSIUM 3.8 mmol/L (3.5-5.1); RED BLOOD CELL COUNT(AUTO) 5.48 MIL/uL (3.63-4.92); WHITE BLOOD COUNT (AUTO) 15.9 K/uL (3.8-11.8)
[2020-06-24 01:27] LABS: BILIRUBIN,DIRECT 0.1 mg/dL (0.0-0.2); BILIRUBIN,TOTAL 0.4 mg/dL (0.2-1.0)
--- NOTE | 2020-06-24 02:00 | NUR ---
structures technician noted in the room at this time
--- NOTE | 2020-06-24 04:00 | NUR ---
Patient assisted to the restroom at this time time
[2020-06-24] MEDS ORDERED: ACETAMINOPHEN 325 MG TABLET PO PRN (05:00)
[2020-06-24] MEDS ORDERED: Z GUARD REMEDY PASTE 57 GM TUBE TOP PRN (05:00)
[2020-06-24] MEDS ORDERED: MAGNESIUM HYDROXIDE 30 ML LIQUID UDC PO PRN (05:00)
[2020-06-24] MEDS ORDERED: IBUPROFEN 600 MG TABLET PO PRN (05:00)
[2020-06-24] MEDS ORDERED: ONDANSETRON 4 MG/2 ML VIAL IV PRN (05:00)
[2020-06-24] MEDS ORDERED: HYDROCODONE/APAP 5-325MG TABLET PO PRN (05:00)
--- NOTE | 2020-06-24 05:02 | NUR ---
Patient noted resting in bed without and signs of acute distress
--- NOTE | 2020-06-24 05:02 | NUR ---
Report given to Kathrin Plasencia
--- NOTE | 2020-06-24 05:41 | NUR ---
Pt. admitted to [facility] , under care of Dr. Abdi, patient transfered via [facility] Belongs List completed and all belongings sent with patient, no signs of acute distress, vitals WNL
[2020-06-24 05:59] VITALS: BP 155/51
--- NOTE | 2020-06-24 06:22 | NUR ---
Pt arrived in the unit at 0600 via gurney. Admitted to Med Surg for cellulitis. AAO x4. No acute distress noted. Denies pain/ discomfort. Right arm precaution implemented. IV on left upper arm #20, patent and intact. Oriented pt to the unit and equipment. Safety measures maintained. Call light and personal items within reach. Pt's belonging's list checked. Will endorse completion of admission to oncoming shift RN.
--- NOTE | 2020-06-24 07:30 | NUR ---
Received patient awake, alert, oriented x 4, not in any form of distress on room air. She denies any pain or discomfort at this time. Noted with right arm redness, swollen and warm on palpation. Peripheral line on the left AC guage 20. Assisted with her needs. Call light and frequently used items placed within reach.
[2020-06-24 08:49] VITALS: BP 154/50
[2020-06-24] MEDS: METOPROLOL TARTRATE 25 MG TABLET PO SCH ×2 (08:50→17:47)
[2020-06-24] MEDS: PIPERACILLIN SODIUM/TAZOBACTAM 3.375 G in IV DEXTROSE 5% 50 ML IV SCH ×3 (08:50→20:30)
[2020-06-24] MEDS: ASPIRIN 81 MG TAB.CHEW PO SCH (08:50)
[2020-06-24] MEDS: AMLODIPINE 2.5 MG TABLET PO SCH (08:51)
[2020-06-24] MEDS: LOSARTAN POTASSIUM 25 MG TABLET PO SCH ×2 (08:51→17:47)
[2020-06-24] MEDS: CALCIUM CARBONATE 500 MG TABLET PO SCH (08:51)
[2020-06-24] MEDS: ATORVASTATIN 10 MG TABLET PO SCH (08:52)
[2020-06-24] MEDS: IV NS 1000 ML 1,000 ML IV PRN (08:58)
[2020-06-24 15:58] VITALS: BP 120/66
--- NOTE | 2020-06-24 19:45 | NUR ---
PATIENT ALERT ORIENTED, NO SOB NO CHEST PAIN, NO COMPLAIN OF PAIN AT THIS TIME. R ARM ELEVATED WITH PILLOW, CONTINENT OF BLADDER, CALL LIGHT WITHIN REACH.
[2020-06-24] MEDS: VANCOMYCIN IV 1,000 MG in IV DEXTROSE 5% 250 ML IV SCH (19:46)
[2020-06-24] MEDS: ESCITALOPRAM OXALATE 10 MG TABLET PO SCH (20:31)
[2020-06-24 20:35] VITALS: BP 120/36
[2020-06-24] MEDS ORDERED: CEFEPIME HCL 1 G VIAL ONE (21:42)
[2020-06-24] MEDS: CEFEPIME HCL 1 G in IV DEXTROSE 5% 50 ML IV SCH (22:21)
[2020-06-25] MEDS: IV NS 1000 ML 1,000 ML IV PRN (03:00)
[2020-06-25 04:42] VITALS: BP 124/44
[2020-06-25 06:10] LABS: BASOPHILS # (AUTO) 0.1 K/uL (0.0-8.0); BASOPHILS % (AUTO) 0.8 % (0.0-2.0); EOSINOPHILS # (AUTO) 0.1 K/uL (0.0-0.7); EOSINOPHILS % (AUTO) 1.8 % (0.0-7.0); HEMATOCRIT 40.6 % (31.2-41.9); HEMOGLOBIN 13.2 g/dL (10.9-14.3); LYMPHOCYTES # (AUTO) 2.2 K/uL (20.0-40.0); LYMPHOCYTES % (AUTO) 28.4 % (20.5-51.5); MEAN CORPUSCULAR HEMOGLOBIN 25.1 uug (24.7-32.8); MEAN CORPUSCULAR HGB CONC 33 g/dL (32.3-35.6); MEAN CORPUSCULAR VOLUME 77.1 fL (75.5-95.3); MONOCYTES # (AUTO) 1.1 K/uL (2.0-10.0); MONOCYTES % (AUTO) 13.8 % (0.0-11.0); NEUTROPHILS # (AUTO) 4.2 K/uL (1.8-8.9); NEUTROPHILS % (AUTO) 55.2 % (38.5-71.5); PLATELET COUNT (AUTO) 198 K/uL (179-408); RED BLOOD CELL COUNT(AUTO) 5.26 MIL/uL (3.63-4.92); WHITE BLOOD COUNT (AUTO) 7.6 K/uL (3.8-11.8)
--- NOTE | 2020-06-25 06:13 | NUR ---
PATIENT ASLEEP BUT EASILY AROUSABLE, NO COMPLAIN OF PAIN AT THIS TIME. PATIENT INSTRUCTED TO KEEP R ARM ELEVATED, 2 EXTRA PILLOW WAS PROVIDED. CONT TO MONITOR.
[2020-06-25 06:26] LABS: BILIRUBIN,TOTAL 0.3 mg/dL (0.2-1.0); CREATININE 0.8 mg/dL (0.6-1.3); MAGNESIUM 2.2 mg/dL (1.8-2.4); PHOSPHOROUS 2.9 mg/dL (2.5-4.9); POTASSIUM 4.5 mmol/L (3.5-5.1); TOTAL PROTEIN, SERUM 6.8 g/dL (6.4-8.2)
--- NOTE | 2020-06-25 07:20 | NUR ---
Received patient awake and alert in bed. Patient denies pain and discomfort, arm elevated on 2 pillows. No S/S of distress. Bed in lowest position, side rails upx2, call light within reach, will continue to monitor.
[2020-06-25] MEDS: CEFEPIME HCL 1 G in IV DEXTROSE 5% 50 ML IV SCH ×3 (07:32→21:10)
[2020-06-25] MEDS: ASPIRIN 81 MG TAB.CHEW PO SCH (08:38)
[2020-06-25] MEDS: CALCIUM CARBONATE 500 MG TABLET PO SCH (08:38)
[2020-06-25] MEDS: ATORVASTATIN 10 MG TABLET PO SCH (08:38)
[2020-06-25] MEDS: AMLODIPINE 2.5 MG TABLET PO SCH (08:39)
[2020-06-25] MEDS: LOSARTAN POTASSIUM 25 MG TABLET PO SCH ×2 (08:39→16:56)
[2020-06-25] MEDS: METOPROLOL TARTRATE 25 MG TABLET PO SCH ×2 (08:39→16:56)
[2020-06-25 08:42] VITALS: BP 137/50
[2020-06-25] MEDS: VANCOMYCIN IV 1,000 MG in IV DEXTROSE 5% 250 ML IV SCH (13:23)
[2020-06-25 15:11] VITALS: BP 138/53
--- NOTE | 2020-06-25 18:28 | NUR ---
Patient rested throughout day, patient denies pain and discomfort. Safety measures provided. Will endorse to oncoming nurse.
[2020-06-25 20:00] VITALS: BP 120/59
[2020-06-25] MEDS: ESCITALOPRAM OXALATE 10 MG TABLET PO SCH (20:14)
[2020-06-25] MEDS: OLOPATADINE 0.1% OPHT DROP 5 ML BOTTLE EACHEYE SCH (20:14)
--- NOTE | 2020-06-26 02:17 | NUR ---
aaox4 admitted for right arm cellulitis. On IV ABT given as ordered. Tolerated well. Needs attended. VSS. Kept comfortable. Will monitor patient.
[2020-06-26 04:00] VITALS: BP 130/55
[2020-06-26] MEDS: CEFEPIME HCL 1 G in IV DEXTROSE 5% 50 ML IV SCH ×3 (05:08→22:01)
[2020-06-26] MEDS: VANCOMYCIN IV 1,000 MG in IV DEXTROSE 5% 250 ML IV SCH ×2 (06:13→17:13)
[2020-06-26 06:48] LABS: CREATININE 0.7 mg/dL (0.6-1.3); POTASSIUM 4.2 mmol/L (3.5-5.1); VANCOMYCIN,TROUGH 8.8 ug/mL (12.0-20.0)
--- NOTE | 2020-06-26 06:53 | NUR ---
End of shift notes: Slept well most of the shift. VSS. Left arm elevated on pillows. Tolerated IV ABT well. Needs attended. Kept comfortable. Voiding well. No complaints presented during shift.
[2020-06-26] MEDS: OLOPATADINE 0.1% OPHT DROP 5 ML BOTTLE EACHEYE SCH ×2 (08:36→20:04)
[2020-06-26] MEDS: CALCIUM CARBONATE 500 MG TABLET PO SCH (08:37)
[2020-06-26] MEDS: ATORVASTATIN 10 MG TABLET PO SCH (08:38)
[2020-06-26] MEDS: ASPIRIN 81 MG TAB.CHEW PO SCH (08:38)
[2020-06-26] MEDS: LOSARTAN POTASSIUM 25 MG TABLET PO SCH ×2 (08:38→17:14)
[2020-06-26] MEDS: METOPROLOL TARTRATE 25 MG TABLET PO SCH ×2 (08:39→17:14)
[2020-06-26] MEDS: PROTEIN SUPPLEMENT (PROSTAT) 30 ML LIQUID PO SCH (08:40)
[2020-06-26] MEDS: AMLODIPINE 2.5 MG TABLET PO SCH (08:41)
[2020-06-26 15:46] VITALS: BP 142/60
--- NOTE | 2020-06-26 17:52 | NUR ---
continue on atb as ordered, right arm with lymphedema, pink in color, patient education provided to elevate the extremity as tolerated. patient does not like the food, stated she only likes [place] food, offered different choices, agreed to eat bread with cheese, provided, independent with adls, continue to monitor. no acute distress noted
--- NOTE | 2020-06-26 19:30 | NUR ---
Received patient awake, alert, and oriented. No s/s of acute distress at this time. Pt denies SOB and pain. Left hand IV patent and intact infusing ordered fluids. Safety measures in place and will continue to monitor.
[2020-06-26 20:02] VITALS: BP 128/58
[2020-06-26] MEDS: ESCITALOPRAM OXALATE 10 MG TABLET PO SCH (20:04)
[2020-06-27] MEDS: IV NS 1000 ML 1,000 ML IV PRN (01:34)
[2020-06-27 04:12] VITALS: BP 126/59
[2020-06-27] MEDS: CEFEPIME HCL 1 G in IV DEXTROSE 5% 50 ML IV SCH ×2 (05:01→13:26)
[2020-06-27] MEDS: VANCOMYCIN IV 1,000 MG in IV DEXTROSE 5% 250 ML IV SCH (06:11)
--- NOTE | 2020-06-27 06:27 | NUR ---
Pt slept well through the night. No s/s of acute distress at this time. Pt denies SOB and pain. VS WNL. Patient tolerated IV antibiotics well. Right arm elevated when lying down. Left hand IV patent and intact. Pt needs were met and attended to. Safety measures in place and will endorse to oncoming shift.
[2020-06-27 06:55] LABS: THYROID STIMULATING HORMONE 1.88 mIU/mL (0.358-3.740)
[2020-06-27 07:10] LABS: BILIRUBIN,TOTAL 0.3 mg/dL (0.2-1.0); CREATININE 0.7 mg/dL (0.6-1.3); MAGNESIUM 2.1 mg/dL (1.8-2.4); POTASSIUM 4.1 mmol/L (3.5-5.1); TOTAL PROTEIN, SERUM 6.8 g/dL (6.4-8.2); URIC ACID 3.2 mg/dL (2.6-6.0)
--- NOTE | 2020-06-27 07:15 | NUR ---
Received patient awake and alert in bed. Patient denies pain and discomfort, arm elevated on 2 pillows. No S/S of distress noted . Bed in lowest position, side rails upx2, call light within reach, will continue to monitor.
[2020-06-27] MEDS: ATORVASTATIN 10 MG TABLET PO SCH (08:12)
[2020-06-27] MEDS: METOPROLOL TARTRATE 25 MG TABLET PO SCH (08:12)
[2020-06-27] MEDS: AMLODIPINE 2.5 MG TABLET PO SCH (08:12)
[2020-06-27] MEDS: CALCIUM CARBONATE 500 MG TABLET PO SCH (08:12)
[2020-06-27] MEDS: ASPIRIN 81 MG TAB.CHEW PO SCH (08:12)
[2020-06-27] MEDS: LOSARTAN POTASSIUM 25 MG TABLET PO SCH (08:12)
[2020-06-27] MEDS: PROTEIN SUPPLEMENT (PROSTAT) 30 ML LIQUID PO SCH (08:13)
[2020-06-27] MEDS: OLOPATADINE 0.1% OPHT DROP 5 ML BOTTLE EACHEYE SCH (08:13)
[2020-06-27 11:30] VITALS: BP 122/64
[2020-06-27] MEDS ORDERED: DOXY100C2 PO (12:17)
--- NOTE | 2020-06-27 14:18 | NUR ---
dc orders received noted and carried out,dc instruction and education given to the pt,radha grayson per md orders.pt said she will follow up with her pcp in one week.pt left the facility via private car in stable condition
== END 2020-06-27 14:22 | disposition home or self-care (01) | DRG 603 ==
LOC: ER 23:54 → MEDSURG3 06-24 05:12
PROVIDERS: ADMIT Internal Medicine; ATTEND Nurse Practitioner Acute Care
DX: L03.113 Cellulitis of right upper limb (principal); E22.2 Syndrome of inappropriate secretion of antidiuretic hormone; E44.0 Moderate protein-calorie malnutrition; E78.5 Hyperlipidemia, unspecified; F39 Unspecified mood [affective] disorder; I10 Essential (primary) hypertension; I89.0 Lymphedema, not elsewhere classified; Z85.3 Personal history of malignant neoplasm of breast; Z90.11 Acquired absence of right breast and nipple; Z68.31 Body mass index [BMI] 31.0-31.9, adult; E66.9 Obesity, unspecified; E86.1 Hypovolemia; E88.09 Other disorders of plasma-protein metabolism, not elsewhere classified
CPT/HCPCS: 36415; 71045; 83605; 83735; 84100; 84300; 84443; 84550; 85025; 87040; A4663; G0378; J0692; J2405; J2543; J3370; J7030; J7040; J7060

== ENCOUNTER 2022-04-09 16:49 | Emergency (ER) | payer MEDICARE, OTHER ==
[~2022-04-09 16:49] MED LIST changes: +ACET-73 PO; +AMLO2.5T4 PO; +ASPI-1169 PO; -ATEN25TA PO; -CALC500T29 PO; +CALC500T52 PO; -CEPH500C2 PO; -DEXL60CA3 PO; +DOXY100C5 PO; -FENO134C PO; -HYDR-3326 PO; +IBUP-1955 PO; -LACT1CAP57 PO; -LORA10TA7 PO; +LOSA25TA27 PO; +METO25TA6 PO; +PRAV10TA40 PO
== END 2022-04-09 18:16 | disposition left against medical advice (07) ==
LOC: ER 16:51
DX: Z53.21 Procedure and treatment not carried out due to patient leaving prior to being seen by health care provider (principal)

== ENCOUNTER 2024-03-18 19:09 | Inpatient (IN) | payer MEDICARE, OTHER ==
[~2024-03-18] VITALS: Ht 152.4 cm; Wt 64.0 kg
[2024-03-18 20:13] LABS: BASOPHILS # (AUTO) 0.3 K/UL (0.0-0.2); BASOPHILS % (AUTO) 1.9 % (0.0-2.0); EOSINOPHILS # (AUTO) 0.1 K/uL (0.0-0.7); EOSINOPHILS % (AUTO) 0.3 % (0.0-7.0); HEMATOCRIT 35.3 % (31.2-41.9); HEMOGLOBIN 10.7 g/dL (10.9-14.3); LYMPHOCYTES # (AUTO) 1.1 K/uL (0.8-4.8); LYMPHOCYTES % (AUTO) 6.6 % (20.5-51.5); MEAN CORPUSCULAR HEMOGLOBIN 22.7 uug (24.7-32.8); MEAN CORPUSCULAR HGB CONC 30 g/dL (32.3-35.6); MEAN CORPUSCULAR VOLUME 74.9 fL (75.5-95.3); MONOCYTES # (AUTO) 1.4 K/uL (0.1-1.30); MONOCYTES % (AUTO) 8.5 % (0.0-11.0); NEUTROPHILS # (AUTO) 13.9 K/uL (1.8-8.9); NEUTROPHILS % (AUTO) 82.7 % (38.5-71.5); PLATELET COUNT (AUTO) 343 K/uL (179-408); RED BLOOD CELL COUNT(AUTO) 4.71 MIL/uL (3.63-4.92); WHITE BLOOD COUNT (AUTO) 16.8 K/uL (3.8-11.8)
[2024-03-18 20:15] LABS: DIFFERENTIAL COMMENT 1
[2024-03-18 20:19] LABS: CALCIUM 9.4 mg/dL (8.5-10.1); CARBON DIOXIDE 27 mmol/L (21-32); CHLORIDE 101 mmol/L (98-107); CREATININE 0.6 mg/dL (0.6-1.3); GLUCOSE 119 mg/dL (74-106); POTASSIUM 3.5 mmol/L (3.5-5.1); SODIUM SERUM 137 mmol/L (136-145); UREA NITROGEN, BLOOD 13 mg/dL (7-18)
[2024-03-18 20:24] LABS: ALANINE AMINOTRANSFERASE 17 U/L (14-59); ALBUMIN 2.6 g/dL (3.4-5.0); ALKALINE PHOSPHATASE 120 U/L (50-136); ASPARTATE AMINOTRANSFERASE 13 U/L (15-37); BILIRUBIN,DIRECT 0.1 mg/dL (0.0-0.2); BILIRUBIN,TOTAL 0.5 mg/dL (0.2-1.0); LIPASE 20 U/L (16-77); TOTAL PROTEIN, SERUM 7.1 g/dL (6.4-8.2)
[2024-03-18 22:09] LABS: LYMPHOCYTES % (MANUAL) 11 % (20-40); MONOCYTES % (MANUAL) 5 % (2-10); NEUTROPHILS % (MANUAL) 84 % (42-75); PLATELET ESTIMATE ADEQUATE
[2024-03-18] MEDS: IV NORMAL SALINE 1000 ML BAG IV ONE (22:12)
[2024-03-18] MEDS ORDERED: LUTIN PO (22:56)
[2024-03-18] MEDS ORDERED: GABA-532 PO (22:56)
[2024-03-18] MEDS ORDERED: THERAPEUTIC M PO (22:56)
[2024-03-18] MEDS ORDERED: TRAM50TA2 PO (22:56)
[2024-03-18] MEDS ORDERED: GABAPENTIN 100 MG CAPSULE ONE (23:47)
[2024-03-18] MEDS ORDERED: TRAMADOL HCL 50 MG TABLET ONE (23:47)
[2024-03-18] MEDS ORDERED: GABAPENTIN 300 MG CAPSULE ONE (23:51)
[2024-03-19] MEDS: GABAPENTIN 300 MG CAPSULE PO ONE (00:26)
[2024-03-19] MEDS: TRAMADOL HCL 50 MG TABLET PO ONE (00:27)
[2024-03-19] MEDS ORDERED: ACETAMINOPHEN 650 MG/20.3 ML LIQUID UDC PO PRN (01:15)
[2024-03-19 01:28] VITALS: BP 133/56; TEMP 98.2; O2SAT 97
[2024-03-19] MEDS ORDERED: IV D5W-0.45% NS 1000 ML BAG IV PRN (01:30)
[2024-03-19] MEDS: IV D5 1/2 NS 1000 ML 1,000 ML IV PRN (01:44)
[2024-03-19] MEDS ORDERED: METRONIDAZOLE 500 MG/NS 100ML 100 ML IV ONE (01:53)
[2024-03-19] MEDS ORDERED: levoFLOXacin 500 MG/D5W 100 ML ONE (01:53)
[2024-03-19] MEDS: levoFLOXacin 500 MG/D5W 500 MG in PREMIXED 1 EACH IV SCH (02:02)
[2024-03-19] MEDS: METRONIDAZOLE 500 MG/NS 100ML 500 MG in PREMIXED 1 EACH IV SCH ×2 (03:03→10:22)
[2024-03-19 06:00] VITALS: BP 129/69; TEMP 98.2; O2SAT 98
[2024-03-19] MEDS: PANTOPRAZOLE SODIUM 40 MG TABLET.DR PO SCH (06:17)
[2024-03-19] MEDS: ACETAMINOPHEN 325 MG TABLET PO PRN (06:18)
[2024-03-19 07:13] LABS: BASOPHILS # (AUTO) 0.1 K/UL (0.0-0.2); BASOPHILS % (AUTO) 0.5 % (0.0-2.0); EOSINOPHILS # (AUTO) 0.1 K/uL (0.0-0.7); EOSINOPHILS % (AUTO) 0.4 % (0.0-7.0); HEMATOCRIT 33.7 % (31.2-41.9); HEMOGLOBIN 10.6 g/dL (10.9-14.3); LYMPHOCYTES # (AUTO) 2.3 K/uL (0.8-4.8); LYMPHOCYTES % (AUTO) 16.8 % (20.5-51.5); MEAN CORPUSCULAR HEMOGLOBIN 23.7 uug (24.7-32.8); MEAN CORPUSCULAR HGB CONC 32 g/dL (32.3-35.6); MEAN CORPUSCULAR VOLUME 75.2 fL (75.5-95.3); MONOCYTES # (AUTO) 1.6 K/uL (0.1-1.30); MONOCYTES % (AUTO) 11.8 % (0.0-11.0); NEUTROPHILS # (AUTO) 9.5 K/uL (1.8-8.9); NEUTROPHILS % (AUTO) 70.5 % (38.5-71.5); PLATELET COUNT (AUTO) 304 K/uL (179-408); RED BLOOD CELL COUNT(AUTO) 4.48 MIL/uL (3.63-4.92); WHITE BLOOD COUNT (AUTO) 13.5 K/uL (3.8-11.8)
[2024-03-19 07:27] LABS: DIFFERENTIAL COMMENT 1
[2024-03-19 07:37] LABS: ALANINE AMINOTRANSFERASE 19 U/L (14-59); ALBUMIN 2.3 g/dL (3.4-5.0); ALKALINE PHOSPHATASE 113 U/L (50-136); ASPARTATE AMINOTRANSFERASE 13 U/L (15-37); BILIRUBIN,TOTAL 0.5 mg/dL (0.2-1.0); CALCIUM 8.9 mg/dL (8.5-10.1); CARBON DIOXIDE 24 mmol/L (21-32); CHLORIDE 103 mmol/L (98-107); CREATININE 0.5 mg/dL (0.6-1.3); GLUCOSE 112 mg/dL (74-106); MAGNESIUM 1.8 mg/dL (1.8-2.4); POTASSIUM 3.1 mmol/L (3.5-5.1); SODIUM SERUM 139 mmol/L (136-145); TOTAL PROTEIN, SERUM 6.6 g/dL (6.4-8.2); UREA NITROGEN, BLOOD 7 mg/dL (7-18)
[2024-03-19 07:54] LABS: IRON, SERUM 17 ug/dL (50-175)
[2024-03-19] MEDS: LOPERAMIDE HCL 2 MG CAPSULE PO PRN (10:23)
[2024-03-19] MEDS: POTASSIUM CHLORIDE 20 MEQ TAB.PRT.SR PO ONE (10:23)
[2024-03-19] MEDS ORDERED: METRONIDAZOLE 500 MG/NS 100ML 500 MG in PREMIXED 1 EACH IV SCH (11:00)
[2024-03-19 11:30] LABS: *OCCULT BLOOD STOOL NEGATIVE (NEGATIVE)
[2024-03-19] MEDS ORDERED: ESCI5TAB16 PO (11:44)
[2024-03-19] MEDS ORDERED: PRAV20TA4 PO (11:46)
[2024-03-19] MEDS ORDERED: ESOM40CA PO (11:48)
[2024-03-19] MEDS ORDERED: ASCO500C18 PO (11:49)
[2024-03-19] MEDS ORDERED: ZINC220T4 PO (11:49)
[2024-03-19] MEDS ORDERED: ASCO-375 PO (11:50)
[2024-03-19] MEDS ORDERED: FERR-56 PO (11:51)
[2024-03-19 12:15] VITALS: BP 140/64; TEMP 98.2; O2SAT 98
[2024-03-19] MEDS: HYDROCODONE/APAP 5-325MG TABLET PO PRN (13:14)
[2024-03-19] MEDS: ONDANSETRON 4 MG/2 ML VIAL IV PRN (14:19)
[2024-03-19] MEDS: MORPHINE SULFATE 2 MG/1 ML DISP.SYRIN IV PRN (16:01)
[2024-03-19] MEDS: GABAPENTIN 100 MG CAPSULE PO PRN (16:01)
[2024-03-19 16:12] VITALS: BP 127/56; TEMP 98.3; O2SAT 96
[2024-03-19] MEDS: TRAMADOL HCL 50 MG TABLET PO PRN (20:11)
[2024-03-19 20:46] VITALS: BP 105/66; TEMP 98.2; O2SAT 98
[2024-03-20 08:00] VITALS: BP 121/63; TEMP 97.2; O2SAT 96
[2024-03-20 08:20] LABS: BASOPHILS # (AUTO) 0.1 K/UL (0.0-0.2); BASOPHILS % (AUTO) 0.6 % (0.0-2.0); EOSINOPHILS # (AUTO) 0.2 K/uL (0.0-0.7); EOSINOPHILS % (AUTO) 1.4 % (0.0-7.0); HEMATOCRIT 33.1 % (31.2-41.9); HEMOGLOBIN 10.6 g/dL (10.9-14.3); LYMPHOCYTES # (AUTO) 2.2 K/uL (0.8-4.8); LYMPHOCYTES % (AUTO) 20.3 % (20.5-51.5); MEAN CORPUSCULAR HGB CONC 32 g/dL (32.3-35.6); MEAN CORPUSCULAR VOLUME 74.7 fL (75.5-95.3); MONOCYTES # (AUTO) 1.2 K/uL (0.1-1.30); MONOCYTES % (AUTO) 11.1 % (0.0-11.0); NEUTROPHILS # (AUTO) 7.1 K/uL (1.8-8.9); NEUTROPHILS % (AUTO) 66.6 % (38.5-71.5); PLATELET COUNT (AUTO) 334 K/uL (179-408); RED BLOOD CELL COUNT(AUTO) 4.43 MIL/uL (3.63-4.92); RED CELL DISTRIBUTION WIDTH 14.9 % (12.3-17.7); WHITE BLOOD COUNT (AUTO) 10.7 K/uL (3.8-11.8)
[2024-03-20 08:29] LABS: DIFFERENTIAL COMMENT 1
[2024-03-20 08:37] LABS: CALCIUM 8.9 mg/dL (8.5-10.1); CARBON DIOXIDE 27 mmol/L (21-32); CHLORIDE 105 mmol/L (98-107); CREATININE 0.5 mg/dL (0.6-1.3); GLUCOSE 94 mg/dL (74-106); POTASSIUM 3.5 mmol/L (3.5-5.1); SODIUM SERUM 139 mmol/L (136-145); UREA NITROGEN, BLOOD 5 mg/dL (7-18)
[2024-03-20] MEDS: AMLODIPINE 2.5 MG TABLET PO SCH (08:53)
[2024-03-20] MEDS: ASPIRIN 81 MG TAB.CHEW PO SCH (08:53)
[2024-03-20 12:00] VITALS: BP 127/74; TEMP 98.1; O2SAT 97
[2024-03-20 12:56] LABS: FERRITIN 189 ng/mL (8-252)
[2024-03-20 16:00] VITALS: BP 127/67; TEMP 97.6; O2SAT 97
[2024-03-20] MEDS: MAGNESIUM HYDROXIDE 30 ML LIQUID UDC PO PRN (18:33)
[2024-03-20 20:00] VITALS: BP 138/66; TEMP 98.2; O2SAT 98
[2024-03-21 03:11] VITALS: BP 157/82; TEMP 98.1; O2SAT 98
[2024-03-21] MEDS: hydrALAZINE HCL 25 MG TABLET PO PRN (03:29)
[2024-03-21 06:00] VITALS: BP 141/67; TEMP 97.9; O2SAT 97
[2024-03-21] MEDS ORDERED: DICY10CA13 PO (11:23)
[2024-03-21] MEDS ORDERED: VANC250C5 PO (11:23)
[2024-03-21] MEDS: VANCOMYCIN FOR PO/GT/NG USE PO SCH (12:47)
[2024-03-21] MEDS: VANCOMYCIN IV 1,000 MG in IV DEXTROSE 5% 250 ML IV SCH (12:48)
[2024-03-21] MEDS: CEFEPIME HCL 2 GM in IV DEXTROSE 5% 100 ML IV SCH (13:42)
[2024-03-21] MEDS: LOSARTAN POTASSIUM 25 MG TABLET PO ONE (13:54)
[2024-03-21 20:30] VITALS: BP 138/77; TEMP 98.6; O2SAT 97
== END 2024-03-21 20:45 | disposition home health service (06) | DRG 371 ==
LOC: ER 19:10 → MEDSURG3 03-19 00:49
PROVIDERS: ADMIT Internal Medicine; ATTEND Internal Medicine
PROC: 05HF33Z Insertion of Infusion Device into Left Cephalic Vein, Percutaneous Approach (ICD-10-PCS; principal; 2024-03-20)
PROC: 02HV33Z Insertion of Infusion Device into Superior Vena Cava, Percutaneous Approach (ICD-10-PCS; 2024-03-21)
DX: A04.72 Enterocolitis due to Clostridium difficile, not specified as recurrent (principal); E43 Unspecified severe protein-calorie malnutrition; M46.26 Osteomyelitis of vertebra, lumbar region; R18.8 Other ascites; T81.40XD Infection following a procedure, unspecified, subsequent encounter; E88.09 Other disorders of plasma-protein metabolism, not elsewhere classified; F32.9 Major depressive disorder, single episode, unspecified; K57.30 Diverticulosis of large intestine without perforation or abscess without bleeding; Z85.3 Personal history of malignant neoplasm of breast; G89.4 Chronic pain syndrome; I10 Essential (primary) hypertension; E78.5 Hyperlipidemia, unspecified; M85.88 Other specified disorders of bone density and structure, other site; Z68.27 Body mass index [BMI] 27.0-27.9, adult; D50.9 Iron deficiency anemia, unspecified; M46.46 Discitis, unspecified, lumbar region; G62.9 Polyneuropathy, unspecified; Z79.82 Long term (current) use of aspirin; Z79.899 Other long term (current) drug therapy
CPT/HCPCS: 36415; 70030-TC; 71045; 74018; 82378; 82746; 83550; 83690; 83735; 84100; 85025; 85730; 86140; 86850; 86900; 86901; 87040; A4606; A4663; G0378; J0692; J1956; J2270; J2405; J3370; J3490; J7040; J7050

== ENCOUNTER 2024-08-27 22:11 | Emergency (ER) | payer MEDICARE, OTHER ==
[~2024-08-27] VITALS: Ht 154.9 cm; Wt 64.9 kg
[~2024-08-27 22:11] MED LIST changes: -ACET-73 PO; +ASCO-375 PO; +DICY10CA13 PO; -DOXY100C5 PO; -ESCI20TA PO; +ESCI5TAB16 PO; +ESOM40CA PO; +FERR-56 PO; +GABA-532 PO; -IBUP-1955 PO; +LUTIN PO; -PRAV10TA40 PO; +PRAV20TA4 PO; +THERAPEUTIC M PO; +TRAM50TA2 PO; +VANC250C5 PO; +ZINC220T4 PO
[2024-08-27] MEDS ORDERED: CEFTRIAXONE /D5W 50ML IVPB **ER PYXIS IV ONE (22:46)
[2024-08-27] MEDS ORDERED: CEPH500C2 PO (23:18)
[2024-08-27 23:23] LABS: BASOPHILS # (AUTO) 0.1 K/UL (0.0-0.2); BASOPHILS % (AUTO) 0.7 % (0.0-2.0); EOSINOPHILS % (AUTO) 0.3 % (0.0-7.0); HEMOGLOBIN 11.8 g/dL (10.9-14.3); LYMPHOCYTES # (AUTO) 0.7 K/uL (0.8-4.8); LYMPHOCYTES % (AUTO) 5.5 % (20.5-51.5); MEAN CORPUSCULAR HEMOGLOBIN 24.9 uug (24.7-32.8); MEAN CORPUSCULAR HGB CONC 33 g/dL (32.3-35.6); MEAN CORPUSCULAR VOLUME 75.9 fL (75.5-95.3); MONOCYTES # (AUTO) 0.6 K/uL (0.1-1.30); MONOCYTES % (AUTO) 4.8 % (0.0-11.0); NEUTROPHILS # (AUTO) 11.2 K/uL (1.8-8.9); NEUTROPHILS % (AUTO) 88.7 % (38.5-71.5); PLATELET COUNT (AUTO) 232 K/uL (179-408); RED BLOOD CELL COUNT(AUTO) 4.74 MIL/uL (3.63-4.92); RED CELL DISTRIBUTION WIDTH 14.7 % (12.3-17.7); WHITE BLOOD COUNT (AUTO) 12.6 K/uL (3.8-11.8)
[2024-08-27] MEDS: CEFTRIAXONE 1 G in IV DEXTROSE 5% 50 ML IV ONE (23:23)
[2024-08-27] MEDS: ONDANSETRON 4 MG/2 ML VIAL IV ONE (23:23)
[2024-08-27 23:37] LABS: ALANINE AMINOTRANSFERASE 35 U/L (14-59); ALBUMIN 3.5 g/dL (3.4-5.0); ALKALINE PHOSPHATASE 127 U/L (50-136); ASPARTATE AMINOTRANSFERASE 22 U/L (15-37); BILIRUBIN,TOTAL 0.7 mg/dL (0.2-1.0); CALCIUM 9.1 mg/dL (8.5-10.1); CARBON DIOXIDE 24 mmol/L (21-32); CHLORIDE 102 mmol/L (98-107); CREATININE 0.8 mg/dL (0.6-1.3); GLUCOSE 110 mg/dL (74-106); POTASSIUM 3.9 mmol/L (3.5-5.1); SODIUM SERUM 136 mmol/L (136-145); TOTAL PROTEIN, SERUM 7.5 g/dL (6.4-8.2); UREA NITROGEN, BLOOD 19 mg/dL (7-18)
[2024-08-27 23:45] LABS: C-REACTIVE PROTEIN 0.45 mg/dL (0.00-0.30)
[2024-08-27] MEDS ORDERED: ONDA4TAB5 PO (23:50)
[2024-08-27] MEDS ORDERED: ACETAMINOPHEN 500 MG TABLET ONE (23:56)
[2024-08-28] MEDS: ACETAMINOPHEN 500 MG TABLET PO ONE (00:05)
[2024-08-28] MEDS ORDERED: ONDANSETRON ODT 4 MG TAB.RAPDIS ONE (00:20)
[2024-08-28] MEDS: ONDANSETRON ODT 4 MG TAB.RAPDIS SL ONE (00:30)
[2024-08-28 01:16] VITALS: BP 135/66; TEMP 99.5; O2SAT 98
== END 2024-08-28 00:35 | disposition home or self-care (01) ==
LOC: ER 22:20
DX: L03.113 Cellulitis of right upper limb (principal); E78.5 Hyperlipidemia, unspecified; I11.9 Hypertensive heart disease without heart failure; Z79.82 Long term (current) use of aspirin; Z85.3 Personal history of malignant neoplasm of breast
CPT/HCPCS: 99285; 96365; 80053; 83735; 85025; 86140; 36415; 83605; J0696; A4606; A4663; A9150; J2405; Q0162

== ENCOUNTER 2024-08-28 23:33 | Emergency (ER) | payer MEDICARE, OTHER ==
[~2024-08-28] VITALS: Ht 152.4 cm; Wt 66.2 kg
[~2024-08-28 23:33] MED LIST changes: +CEPH500C2 PO; +ONDA4TAB5 PO
[2024-08-29 00:50] LABS: BASOPHILS % (AUTO) 0.5 % (0.0-2.0); EOSINOPHILS % (AUTO) 0.4 % (0.0-7.0); HEMATOCRIT 38.1 % (31.2-41.9); HEMOGLOBIN 12.2 g/dL (10.9-14.3); LYMPHOCYTES # (AUTO) 2.1 K/uL (0.8-4.8); LYMPHOCYTES % (AUTO) 20.3 % (20.5-51.5); MEAN CORPUSCULAR HGB CONC 32 g/dL (32.3-35.6); MONOCYTES # (AUTO) 1.3 K/uL (0.1-1.30); MONOCYTES % (AUTO) 12.4 % (0.0-11.0); NEUTROPHILS # (AUTO) 6.9 K/uL (1.8-8.9); NEUTROPHILS % (AUTO) 66.4 % (38.5-71.5); PLATELET COUNT (AUTO) 185 K/uL (179-408); RED BLOOD CELL COUNT(AUTO) 4.88 MIL/uL (3.63-4.92); WHITE BLOOD COUNT (AUTO) 10.4 K/uL (3.8-11.8)
[2024-08-29 01:00] LABS: CALCIUM 8.9 mg/dL (8.5-10.1); CARBON DIOXIDE 25 mmol/L (21-32); CHLORIDE 103 mmol/L (98-107); CREATININE 0.9 mg/dL (0.6-1.3); GLUCOSE 117 mg/dL (74-106); POTASSIUM 3.7 mmol/L (3.5-5.1); SODIUM SERUM 136 mmol/L (136-145); UREA NITROGEN, BLOOD 21 mg/dL (7-18)
[2024-08-29 02:12] VITALS: BP 103/58; O2SAT 98
== END 2024-08-29 01:43 | disposition home or self-care (01) ==
LOC: ER 23:39
DX: L03.113 Cellulitis of right upper limb (principal); E78.5 Hyperlipidemia, unspecified; F32.A Depression, unspecified; F41.9 Anxiety disorder, unspecified; I11.9 Hypertensive heart disease without heart failure; I89.0 Lymphedema, not elsewhere classified; Z79.82 Long term (current) use of aspirin; Z85.3 Personal history of malignant neoplasm of breast
CPT/HCPCS: 36415; 85025; A4606; A4663

== ENCOUNTER 2024-10-02 23:29 | Inpatient (IN) | payer MEDICARE, OTHER ==
[~2024-10-02] VITALS: Ht 162.6 cm; Wt 67.1 kg
[2024-10-03 00:46] LABS: BASOPHILS # (AUTO) 0.1 K/UL (0.0-0.2); BASOPHILS % (AUTO) 0.4 % (0.0-2.0); EOSINOPHILS % (AUTO) 0.3 % (0.0-7.0); HEMOGLOBIN 12.8 g/dL (10.9-14.3); LYMPHOCYTES # (AUTO) 0.6 K/uL (0.8-4.8); LYMPHOCYTES % (AUTO) 4.1 % (20.5-51.5); MEAN CORPUSCULAR HEMOGLOBIN 24.5 uug (24.7-32.8); MEAN CORPUSCULAR HGB CONC 32 g/dL (32.3-35.6); MEAN CORPUSCULAR VOLUME 76.4 fL (75.5-95.3); MONOCYTES # (AUTO) 0.8 K/uL (0.1-1.30); MONOCYTES % (AUTO) 5.5 % (0.0-11.0); NEUTROPHILS # (AUTO) 12.5 K/uL (1.8-8.9); NEUTROPHILS % (AUTO) 89.7 % (38.5-71.5); PLATELET COUNT (AUTO) 256 K/uL (179-408); RED BLOOD CELL COUNT(AUTO) 5.24 MIL/uL (3.63-4.92); RED CELL DISTRIBUTION WIDTH 15.3 % (12.3-17.7)
[2024-10-03 01:00] LABS: DIFFERENTIAL COMMENT 1
[2024-10-03 01:29] LABS: *BILIRUBIN,URIN NEGATIVE (NEGATIVE); *BLOOD, URINE NEGATIVE (NEGATIVE); *CLARITY,URINE CLEAR (CLEAR); *COLOR,URINE YELLOW (YELLOW); *KETONES,URINE NEGATIVE (NEGATIVE); *PROTEIN,URINE NEGATIVE (NEGATIVE); *UROBILINOGEN,URINE 0.2 E.U./dl (NORMAL); LEUKOCYTE ESTERASE ,URINE NEGATIVE (NEGATIVE); NITRITE, URINE NEGATIVE (NEGATIVE); UGLUCOSE NEGATIVE (NEGATIVE)
[2024-10-03 02:13] LABS: ALANINE AMINOTRANSFERASE 35 U/L (14-59); ALBUMIN 3.9 g/dL (3.4-5.0); ALKALINE PHOSPHATASE 133 U/L (50-136); ASPARTATE AMINOTRANSFERASE 30 U/L (15-37); BILIRUBIN,DIRECT 0.1 mg/dL (0.0-0.2); BILIRUBIN,TOTAL 0.5 mg/dL (0.2-1.0); CALCIUM 9.2 mg/dL (8.5-10.1); CARBON DIOXIDE 24 mmol/L (21-32); CHLORIDE 104 mmol/L (98-107); CREATININE 0.9 mg/dL (0.6-1.3); GLUCOSE 118 mg/dL (74-106); POTASSIUM 4.2 mmol/L (3.5-5.1); SODIUM SERUM 142 mmol/L (136-145); TOTAL PROTEIN, SERUM 8.1 g/dL (6.4-8.2); UREA NITROGEN, BLOOD 23 mg/dL (7-18)
[2024-10-03] MEDS ORDERED: ONDANSETRON 4 MG/2 ML VIAL ONE (02:39)
[2024-10-03] MEDS ORDERED: CLINDAMYCIN 600 MG PIGGYBACK**ER OMNI IV ONE (02:39)
[2024-10-03] MEDS: IV NORMAL SALINE 1000 ML BAG IV ONE (02:57)
[2024-10-03] MEDS: ONDANSETRON 4 MG/2 ML VIAL IV ONE (02:57)
[2024-10-03] MEDS: CLINDAMYCIN PHOSPHATE IV 600 MG in IV DEXTROSE 5% 100 ML IV ONE (03:01)
[2024-10-03] MEDS ORDERED: ACETAMINOPHEN 325 MG TABLET ONE (03:56)
[2024-10-03] MEDS: ACETAMINOPHEN 500 MG TABLET PO ONE (03:59)
[2024-10-03] MEDS ORDERED: GABAPENTIN 100 MG CAPSULE PO PRN (04:30)
[2024-10-03] MEDS ORDERED: ONDANSETRON 4 MG/2 ML VIAL IV PRN (04:30)
[2024-10-03] MEDS ORDERED: MAGNESIUM HYDROXIDE 30 ML LIQUID UDC PO PRN (04:30)
[2024-10-03] MEDS ORDERED: PANTOPRAZOLE SODIUM 40 MG TABLET.DR PO ONE (07:16)
[2024-10-03] MEDS: PANTOPRAZOLE SODIUM 40 MG TABLET.DR PO SCH (07:19)
[2024-10-03 08:22] LABS: BASOPHILS # (AUTO) 0.1 K/UL (0.0-0.2); BASOPHILS % (AUTO) 0.3 % (0.0-2.0); HEMATOCRIT 34.1 % (31.2-41.9); HEMOGLOBIN 10.8 g/dL (10.9-14.3); LYMPHOCYTES # (AUTO) 0.7 K/uL (0.8-4.8); LYMPHOCYTES % (AUTO) 2.8 % (20.5-51.5); MEAN CORPUSCULAR HEMOGLOBIN 24.3 uug (24.7-32.8); MEAN CORPUSCULAR HGB CONC 32 g/dL (32.3-35.6); MEAN CORPUSCULAR VOLUME 76.2 fL (75.5-95.3); MONOCYTES # (AUTO) 1.2 K/uL (0.1-1.30); NEUTROPHILS # (AUTO) 21.9 K/uL (1.8-8.9); NEUTROPHILS % (AUTO) 91.9 % (38.5-71.5); PLATELET COUNT (AUTO) 213 K/uL (179-408); RED BLOOD CELL COUNT(AUTO) 4.47 MIL/uL (3.63-4.92); WHITE BLOOD COUNT (AUTO) 23.9 K/uL (3.8-11.8)
[2024-10-03 08:40] LABS: DIFFERENTIAL COMMENT 1
[2024-10-03 08:41] LABS: CALCIUM 8.1 mg/dL (8.5-10.1); CARBON DIOXIDE 24 mmol/L (21-32); CHLORIDE 107 mmol/L (98-107); CREATININE 0.9 mg/dL (0.6-1.3); GLUCOSE 114 mg/dL (74-106); MAGNESIUM 1.8 mg/dL (1.8-2.4); PHOSPHOROUS 3.7 mg/dL (2.5-4.9); POTASSIUM 3.9 mmol/L (3.5-5.1); SODIUM SERUM 142 mmol/L (136-145); UREA NITROGEN, BLOOD 21 mg/dL (7-18)
[2024-10-03] MEDS: LOSARTAN POTASSIUM 25 MG TABLET PO SCH ×2 (09:00→19:13)
[2024-10-03] MEDS ORDERED: PANTOPRAZOLE SODIUM 40 MG VIAL IV SCH (09:00)
[2024-10-03] MEDS ORDERED: CALCIUM CARBONATE 500 MG TABLET PO SCH (09:00)
[2024-10-03] MEDS ORDERED: Medication Not On Formulary EA (Esomeprazole Mag Trihydrate (Nexium) 40 MG) PO SCH (09:00)
[2024-10-03] MEDS: ASPIRIN 81 MG TAB.CHEW PO SCH (09:01)
[2024-10-03 10:15] VITALS: BP 117/59; TEMP 97.6; O2SAT 98
[2024-10-03] MEDS: METOPROLOL TARTRATE 25 MG TABLET PO SCH (11:39)
[2024-10-03] MEDS: CLINDAMYCIN PHOSPHATE IV 600 MG in IV DEXTROSE 5% 50 ML IV SCH (11:40)
[2024-10-03] MEDS: ACETAMINOPHEN 325 MG TABLET PO PRN (13:32)
[2024-10-03] MEDS: IV 1/2NS 1000 ML 1,000 ML IV PRN (13:37)
[2024-10-03] MEDS ORDERED: ERGO500040 PO (14:58)
[2024-10-03 16:20] VITALS: BP 140/57; TEMP 98.2; O2SAT 96
[2024-10-03] MEDS: GABAPENTIN 300 MG CAPSULE PO PRN (18:59)
[2024-10-03 20:35] VITALS: BP 106/50; TEMP 98.4; O2SAT 97
[2024-10-03] MEDS ORDERED: Medication Not On Formulary EA (Escitalopram Oxalate 5 MG) PO SCH (21:00)
[2024-10-03] MEDS: ATORVASTATIN 10 MG TABLET PO SCH (21:25)
[2024-10-03] MEDS: ESCITALOPRAM OXALATE 10 MG TABLET PO SCH (21:25)
[2024-10-04 04:00] VITALS: BP 99/49; TEMP 98; O2SAT 97
[2024-10-04 06:06] LABS: HEPATITIS B CORE AB, IgM Negative (Negative); HEPATITIS B SURFACE AB, QUAL Reactive (.); HEPATITIS B SURFACE AG Negative (Negative); HEPATITIS C VIRUS ANTIBODY Non Reactive (Non Reactive)
[2024-10-04 07:19] LABS: BASOPHILS % (AUTO) 0.4 % (0.0-2.0); EOSINOPHILS # (AUTO) 0.1 K/uL (0.0-0.7); EOSINOPHILS % (AUTO) 0.4 % (0.0-7.0); HEMATOCRIT 33.5 % (31.2-41.9); HEMOGLOBIN 10.8 g/dL (10.9-14.3); LYMPHOCYTES # (AUTO) 1.6 K/uL (0.8-4.8); LYMPHOCYTES % (AUTO) 11.6 % (20.5-51.5); MEAN CORPUSCULAR HEMOGLOBIN 24.5 uug (24.7-32.8); MEAN CORPUSCULAR HGB CONC 32 g/dL (32.3-35.6); MEAN CORPUSCULAR VOLUME 76.3 fL (75.5-95.3); MONOCYTES # (AUTO) 1.1 K/uL (0.1-1.30); MONOCYTES % (AUTO) 7.9 % (0.0-11.0); NEUTROPHILS # (AUTO) 10.7 K/uL (1.8-8.9); NEUTROPHILS % (AUTO) 79.7 % (38.5-71.5); PLATELET COUNT (AUTO) 200 K/uL (179-408); RED BLOOD CELL COUNT(AUTO) 4.38 MIL/uL (3.63-4.92); RED CELL DISTRIBUTION WIDTH 15.4 % (12.3-17.7); WHITE BLOOD COUNT (AUTO) 13.4 K/uL (3.8-11.8)
[2024-10-04 07:38] LABS: DIFFERENTIAL COMMENT 1
[2024-10-04 07:56] LABS: IRON, SERUM 8 ug/dL (50-175)
[2024-10-04 08:00] VITALS: BP 103/57; TEMP 98; O2SAT 98
[2024-10-04 08:03] LABS: ALANINE AMINOTRANSFERASE 29 U/L (14-59); ALBUMIN 2.7 g/dL (3.4-5.0); ALKALINE PHOSPHATASE 92 U/L (50-136); ASPARTATE AMINOTRANSFERASE 20 U/L (15-37); BILIRUBIN,TOTAL 0.7 mg/dL (0.2-1.0); CALCIUM 8.5 mg/dL (8.5-10.1); CARBON DIOXIDE 25 mmol/L (21-32); CHLORIDE 104 mmol/L (98-107); CHOLESTEROL 140 mg/dL (<200); CREATININE 0.7 mg/dL (0.6-1.3); GLUCOSE 93 mg/dL (74-106); HDL CHOLESTEROL 70 mg/dL (40-60); POTASSIUM 3.4 mmol/L (3.5-5.1); SODIUM SERUM 138 mmol/L (136-145); TOTAL PROTEIN, SERUM 6.7 g/dL (6.4-8.2); TRIGLYCERIDES 45 MG/DL (30-150); UREA NITROGEN, BLOOD 15 mg/dL (7-18)
[2024-10-04 08:06] LABS: HEPATITIS B CORE AB, TOTAL Positive (Negative); HEPATITIS Be ANTIGEN Negative (Negative)
[2024-10-04] MEDS: ASPIRIN EC 81 MG TABLET.DR PO SCH (08:52)
[2024-10-04] MEDS: CALCIUM CARBONATE 500 MG TAB.CHEW PO SCH (08:52)
[2024-10-04] MEDS: AMLODIPINE 2.5 MG TABLET PO SCH (08:52)
[2024-10-04 08:59] LABS: THYROID STIMULATING HORMONE 1.622 mIU/mL (0.358-3.740)
[2024-10-04 11:50] VITALS: BP 97/49; TEMP 98.4; O2SAT 98
[2024-10-04] MEDS: POTASSIUM CHLORIDE 20 MEQ TAB.PRT.SR PO ONE (12:19)
[2024-10-04] MEDS: CLINDAMYCIN PHOSPHATE IV 600 MG in IV DEXTROSE 5% 50 ML IV SCH (14:50)
[2024-10-04 15:54] VITALS: BP 105/49; TEMP 98; O2SAT 98
[2024-10-04 19:15] VITALS: BP 120/58; TEMP 98.4; O2SAT 97
[2024-10-04] MEDS ORDERED: CLINDAMYCIN 600 MG PIGGYBACK**ER OMNI IV ONE (21:36)
[2024-10-05 06:00] VITALS: BP 120/43; TEMP 98; O2SAT 98
[2024-10-05 07:33] LABS: BASOPHILS # (AUTO) 0.1 K/UL (0.0-0.2); BASOPHILS % (AUTO) 0.9 % (0.0-2.0); EOSINOPHILS # (AUTO) 0.1 K/uL (0.0-0.7); EOSINOPHILS % (AUTO) 1.4 % (0.0-7.0); HEMATOCRIT 34.7 % (31.2-41.9); HEMOGLOBIN 11.3 g/dL (10.9-14.3); LYMPHOCYTES % (AUTO) 25.7 % (20.5-51.5); MEAN CORPUSCULAR HEMOGLOBIN 24.8 uug (24.7-32.8); MEAN CORPUSCULAR HGB CONC 33 g/dL (32.3-35.6); MEAN CORPUSCULAR VOLUME 76.3 fL (75.5-95.3); MONOCYTES % (AUTO) 13.2 % (0.0-11.0); NEUTROPHILS # (AUTO) 4.7 K/uL (1.8-8.9); NEUTROPHILS % (AUTO) 58.8 % (38.5-71.5); PLATELET COUNT (AUTO) 205 K/uL (179-408); RED BLOOD CELL COUNT(AUTO) 4.56 MIL/uL (3.63-4.92); RED CELL DISTRIBUTION WIDTH 15.4 % (12.3-17.7); WHITE BLOOD COUNT (AUTO) 7.9 K/uL (3.8-11.8)
[2024-10-05 07:54] LABS: CARBON DIOXIDE 27 mmol/L (21-32); CHLORIDE 106 mmol/L (98-107); CREATININE 0.6 mg/dL (0.6-1.3); GLUCOSE 91 mg/dL (74-106); MAGNESIUM 2.1 mg/dL (1.8-2.4); POTASSIUM 4.1 mmol/L (3.5-5.1); SODIUM SERUM 139 mmol/L (136-145); UREA NITROGEN, BLOOD 13 mg/dL (7-18)
[2024-10-05 08:25] LABS: DIFFERENTIAL COMMENT 1
[2024-10-05] MEDS ORDERED: DOXY100C5 PO (12:14)
[2024-10-05] MEDS ORDERED: DOCU250C14 PO (12:14)
[2024-10-05] MEDS ORDERED: ASPI-618 PO (12:14)
[2024-10-05] MEDS ORDERED: FERR324T17 PO (12:14)
[2024-10-05] MEDS ORDERED: BISA-79 PO (12:14)
[2024-10-05 19:06] LABS: *HCV QUANT HCV Not Detected IU/mL (.)
== END 2024-10-05 12:52 | disposition home health service (06) | DRG 872 ==
LOC: ER 23:44 → MEDSURG3 10-03 09:40
PROVIDERS: ATTEND Internal Medicine
PROC: 05HF33Z Insertion of Infusion Device into Left Cephalic Vein, Percutaneous Approach (ICD-10-PCS; principal; 2024-10-04)
DX: A40.9 Streptococcal sepsis, unspecified (principal); L03.113 Cellulitis of right upper limb; I97.2 Postmastectomy lymphedema syndrome; Y83.8 Other surgical procedures as the cause of abnormal reaction of the patient, or of later complication, without mention of misadventure at the time of the procedure; Z90.11 Acquired absence of right breast and nipple; E78.5 Hyperlipidemia, unspecified; E66.9 Obesity, unspecified; Z68.25 Body mass index [BMI] 25.0-25.9, adult; Z86.19 Personal history of other infectious and parasitic diseases; K21.9 Gastro-esophageal reflux disease without esophagitis; D50.9 Iron deficiency anemia, unspecified; R19.5 Other fecal abnormalities; Z85.3 Personal history of malignant neoplasm of breast; I10 Essential (primary) hypertension; R03.1 Nonspecific low blood-pressure reading; Z87.39 Personal history of other diseases of the musculoskeletal system and connective tissue
CPT/HCPCS: 36415; 71045; 83550; 83605; 83735; 84100; 84443; 84484; 85025; 85730; 86704; 86705; 86706; 86803; 87040; 87077; 87340; 87350; 87521; A4606; A4663; G0378; J2405; J3490; J7040

== ENCOUNTER 2024-12-18 14:58 | Emergency (ER) | payer MEDICARE, OTHER ==
[~2024-12-18] VITALS: Ht 162.6 cm; Wt 67.1 kg
[~2024-12-18 14:58] MED LIST changes: -ASCO-375 PO; -ASPI-1169 PO; +ASPI-618 PO; +BISA-79 PO; -CEPH500C2 PO; -DICY10CA13 PO; +DOCU250C14 PO; +DOXY100C5 PO; +ERGO500040 PO; -FERR-56 PO; +FERR324T17 PO; -LUTIN PO; -ONDA4TAB5 PO; -THERAPEUTIC M PO; -TRAM50TA2 PO; -VANC250C5 PO; -ZINC220T4 PO
[2024-12-18] MEDS ORDERED: OXYCODONE/APAP 5-325 MG TABLET ONE (16:27)
[2024-12-18] MEDS ORDERED: CEFAZOLIN 1 G VIAL ONE (16:27)
[2024-12-18 16:32] LABS: BASOPHILS # (AUTO) 0.1 K/UL (0.0-0.2); BASOPHILS % (AUTO) 0.9 % (0.0-2.0); EOSINOPHILS # (AUTO) 0.1 K/uL (0.0-0.7); EOSINOPHILS % (AUTO) 0.8 % (0.0-7.0); HEMATOCRIT 39.9 % (31.2-41.9); HEMOGLOBIN 12.7 g/dL (10.9-14.3); LYMPHOCYTES # (AUTO) 1.7 K/uL (0.8-4.8); LYMPHOCYTES % (AUTO) 16.6 % (20.5-51.5); MEAN CORPUSCULAR HEMOGLOBIN 24.3 uug (24.7-32.8); MEAN CORPUSCULAR HGB CONC 32 g/dL (32.3-35.6); MEAN CORPUSCULAR VOLUME 76.4 fL (75.5-95.3); MONOCYTES # (AUTO) 0.8 K/uL (0.1-1.30); NEUTROPHILS # (AUTO) 7.5 K/uL (1.8-8.9); NEUTROPHILS % (AUTO) 73.7 % (38.5-71.5); PLATELET COUNT (AUTO) 239 K/uL (179-408); RED BLOOD CELL COUNT(AUTO) 5.22 MIL/uL (3.63-4.92); RED CELL DISTRIBUTION WIDTH 15.5 % (12.3-17.7); WHITE BLOOD COUNT (AUTO) 10.2 K/uL (3.8-11.8)
[2024-12-18 16:33] LABS: DIFFERENTIAL COMMENT 1
[2024-12-18 16:38] LABS: CALCIUM 9.5 mg/dL (8.5-10.1); CARBON DIOXIDE 25 mmol/L (21-32); CHLORIDE 104 mmol/L (98-107); CREATININE 0.7 mg/dL (0.6-1.3); GLUCOSE 107 mg/dL (74-106); POTASSIUM 3.6 mmol/L (3.5-5.1); SODIUM SERUM 138 mmol/L (136-145); UREA NITROGEN, BLOOD 20 mg/dL (7-18)
[2024-12-18] MEDS: OXYCODONE/APAP 5-325 MG TABLET PO ONE (16:38)
[2024-12-18] MEDS: CEFAZOLIN 1 G in IV DEXTROSE 5% 50 ML IV ONE (16:49)
[2024-12-18 17:01] LABS: IRON, SERUM 29 ug/dL (50-175)
[2024-12-18] MEDS ORDERED: FERR325T23 PO (17:54)
[2024-12-18] MEDS ORDERED: CEFD300C3 PO (17:54)
[2024-12-18 18:35] VITALS: BP 121/69; O2SAT 99
== END 2024-12-18 18:36 | disposition home or self-care (01) ==
LOC: ER 14:58
DX: L03.113 Cellulitis of right upper limb (principal); I89.0 Lymphedema, not elsewhere classified; D50.9 Iron deficiency anemia, unspecified; E78.5 Hyperlipidemia, unspecified; Z79.82 Long term (current) use of aspirin; Z79.899 Other long term (current) drug therapy
CPT/HCPCS: 99284; 96365; 80048; 83550; 85025; 36415; J0690; A4606; A4663

== ENCOUNTER 2025-04-05 21:15 | Emergency (ER) | payer MEDICARE, OTHER ==
[~2025-04-05] VITALS: Ht 165.1 cm; Wt 81.6 kg
[~2025-04-05 21:15] MED LIST changes: +CEFD300C3 PO; +FERR325T23 PO
[2025-04-05] MEDS ORDERED: AMOXICILLIN-CLAVUL 875-125MG TABLET ONE (22:01)
[2025-04-05] MEDS ORDERED: TDAP DIPH,PERTUSS,TET VAC/PF 0.5 ML DISP.SYRIN IM ONE (22:03)
[2025-04-05] MEDS: AMOXICILLIN-CLAVUL 875-125MG TABLET PO ONE (22:10)
[2025-04-05] MEDS: TDAP DIPH,PERTUSS,TET VAC/PF 0.5 ML DISP.SYRIN IM ONE (22:11)
[2025-04-05] MEDS ORDERED: AMOX-430 PO (22:17)
[2025-04-05 22:26] VITALS: BP 130/77; TEMP 98.3; O2SAT 97
== END 2025-04-05 22:27 | disposition home or self-care (01) ==
LOC: ER 21:37
DX: S60.470A Other superficial bite of right index finger, initial encounter (principal); E78.5 Hyperlipidemia, unspecified; Z79.82 Long term (current) use of aspirin; Z79.899 Other long term (current) drug therapy; Z87.2 Personal history of diseases of the skin and subcutaneous tissue; Z85.3 Personal history of malignant neoplasm of breast; W54.0XXA Bitten by dog, initial encounter; Y93.89 Activity, other specified; Y92.89 Other specified places as the place of occurrence of the external cause; Y99.8 Other external cause status
CPT/HCPCS: 73130; 90715; A4606; A4663

== ENCOUNTER 2025-07-11 08:57 | Emergency (ER) | payer MEDICARE, OTHER ==
[~2025-07-11] VITALS: Ht 154.9 cm; Wt 71.2 kg
[~2025-07-11 08:57] MED LIST changes: +AMOX-430 PO
[2025-07-11 09:00] VITALS: BP 145/69
[2025-07-11] MEDS: DEXAMETHASONE SOD PHOSPHATE 4 MG INJ IV ONE (09:12)
[2025-07-11 09:30] LABS: PLATELET COUNT (AUTO) 188 K/uL (179-408); RED BLOOD CELL COUNT(AUTO) 5.71 MIL/uL (3.63-4.92); RED CELL DISTRIBUTION WIDTH 15.0 % (12.3-17.7); WHITE BLOOD COUNT (AUTO) 8.8 K/uL (3.8-11.8)
[2025-07-11] MEDS: IV NORMAL SALINE 1000 ML BAG IV ONE (09:45)
[2025-07-11] MEDS ORDERED: DEXAMETHASONE SOD PHOSPHATE 4 MG INJ ONE (09:48)
[2025-07-11] MEDS ORDERED: CEFTRIAXONE /D5W 50ML IVPB **ER PYXIS IV ONE (09:48)
[2025-07-11] MEDS ORDERED: AMOX600S16 PO (11:37)
[2025-07-11 11:48] LABS: CREATININE 0.8 mg/dL (0.6-1.3); SODIUM SERUM 140 mmol/L (136-145); UREA NITROGEN, BLOOD 12 mg/dL (7-18)
[2025-07-11 11:55] LABS: ASPARTATE AMINOTRANSFERASE 21 U/L (15-37); TOTAL PROTEIN, SERUM 7.9 g/dL (6.4-8.2)
[2025-07-11 13:26] VITALS: BP 131/61; O2SAT 99
== END 2025-07-11 12:30 | disposition home or self-care (01) ==
LOC: ER 08:57
DX: I11.9 Hypertensive heart disease without heart failure (principal); E78.5 Hyperlipidemia, unspecified; Z79.82 Long term (current) use of aspirin; Z79.899 Other long term (current) drug therapy
CPT/HCPCS: 36415; 70360; 85025; A4606; A4663; J0696; J1100; J7040